=== PATIENT | female | born 1935 | race Caucasian/White ===

== ENCOUNTER → 2019-10-08 09:11 | Outpatient (REF) | payer MEDICARE, SELFPAY | LOC: ANHLAB 09:11 | PROVIDERS: PCP Internal Medicine; Visit Provider Nurse Practitioner Family | DX: C44.41 Basal cell carcinoma of skin of scalp and neck (principal) | CPT/HCPCS: 88305; 88331 ==

== ENCOUNTER 2020-01-20 11:31 | Outpatient (CLI) | payer MEDICARE, SELFPAY ==
[2020-01-20 11:42] LABS: Basophils Percent Auto 0.3 % (0.2-1.2); Eosinophils Absolute Auto 0.1 K/mm3 (0-0.3); Eosinophils Percent Auto 1.6 % (0-4.4); Hemoglobin 14.1 g/dL (12.0-15.0); Immature Granulocyte Absolute 0.03 K/mm3 (0.00-0.031); Immature Granulocyte Percent A 0.4 % (0-0.5); Lymphocytes Absolute Auto 1.11 K/mm3 (0.9-3.2); Lymphocytes Percent Auto 16.5 % (18.3-44.2); Mean Corpuscular Hemoglobin 31.5 pg (26-34); Mean Corpuscular Volume 98.2 fl (80-100); Mean Platelet Volume 11.2 fl (7.4-10.4); Monocytes Absolute Auto 0.7 K/mm3 (0.1-0.6); Monocytes Percent Auto 10.8 % (2.6-8.5); Neutrophils Absolute Auto 4.7 K/mm3 (1.3-6.7); Neutrophils Percent Auto 70.4 % (45.5-73.1); Platelet Count Result 154 k/mm3 (150-375); Red Blood Count 4.48 M/mm3 (4.2-5.4); Red Cell Distribution Width 13.7 % (11.5-14.5); White Blood Count 6.7 K/mm3 (4.5-10.0)
[2020-01-20 11:46] LABS: Blood Urea Nitrogen 18 mg/dL (8-26); Carbon Dioxide 27 mmol/L (22-30); Chloride 101 mmol/L (98-109); Estimated Glomerular Filt Rate 60; Glucose 149 mg/dL (70-105); Sodium 141 mmol/L (138-146)
[2020-01-20 16:22] LABS: Alanine Aminotransferase 16 U/L (4-35); Albumin Level 4.5 g/dL (3.5-5.1); Alkaline Phosphatase 55 U/L (38-126); Aspartate Amino Transferase 19 U/L (14-36); Bilirubin,Total 0.5 mg/dL (0.2-1.3); Blood Urea Nitrogen 18 mg/dL (7-17); Calcium 9.5 mg/dL (8.4-10.2); Carbon Dioxide 27 mmol/L (22-30); Chloride 102 mmol/L (98-107); Estimated Glomerular Filt Rate 60; Glucose 141 mg/dL (65-105); Lactate Dehydrogenase 372 U/L (313-618); Potassium 4.2 mmol/L (3.4-5.0); Sodium 139 mmol/L (137-145)
== END 2020-01-20 11:32 | disposition home or self-care (01) ==
LOC: ANHLAB 11:33
PROVIDERS: PCP Internal Medicine; Visit Provider Internal Medicine Hematology & Oncology
DX: C83.35 Diffuse large B-cell lymphoma, lymph nodes of inguinal region and lower limb (principal)
CPT/HCPCS: 36415; 80048; 80053; 83615; 85025

== ENCOUNTER 2020-02-05 09:09 | Outpatient (CLI) | payer MEDICARE, SELFPAY ==
[2020-02-05 09:33] LABS: Basophils Percent Auto 0.2 % (0.2-1.2); Eosinophils Absolute Auto 0.1 K/mm3 (0-0.3); Eosinophils Percent Auto 2.3 % (0-4.4); Hematocrit 40.4 % (37.0-47.0); Hemoglobin 13.3 g/dL (12.0-15.0); Immature Granulocyte Absolute 0.03 K/mm3 (0.00-0.031); Immature Granulocyte Percent A 0.5 % (0-0.5); Immature Platelet Fraction Pct 4.9 % (0.9-11.2); Lymphocytes Absolute Auto 0.74 K/mm3 (0.9-3.2); Lymphocytes Percent Auto 13.1 % (18.3-44.2); Mean Corpuscular HGB Conc 32.9 g/dl (32-36); Mean Corpuscular Hemoglobin 32.6 pg (26-34); Mean Platelet Volume 11.8 fl (7.4-10.4); Monocytes Absolute Auto 0.5 K/mm3 (0.1-0.6); Monocytes Percent Auto 8.8 % (2.6-8.5); Neutrophils Absolute Auto 4.2 K/mm3 (1.3-6.7); Neutrophils Percent Auto 75.1 % (45.5-73.1); Platelet Count Result 138 k/mm3 (150-375); Red Blood Count 4.08 M/mm3 (4.2-5.4); Red Cell Distribution Width 13.8 % (11.5-14.5); White Blood Count 5.7 K/mm3 (4.5-10.0)
[2020-02-05 09:55] LABS: Hemoglobin A1C 7.3 % (<5.7)
[2020-02-05 10:01] LABS: Alanine Aminotransferase 14 U/L (4-35); Alkaline Phosphatase 46 U/L (38-126); Aspartate Amino Transferase 17 U/L (14-36); Bilirubin,Total 0.5 mg/dL (0.2-1.3); Blood Urea Nitrogen 19 mg/dL (7-17); Calcium 9.2 mg/dL (8.4-10.2); Carbon Dioxide 26 mmol/L (22-30); Chloride 103 mmol/L (98-107); Cholesterol 127 mg/dL (0-200); Estimated Glomerular Filt Rate 60; Glucose 187 mg/dL (65-105); HDL Direct 35 mg/dL; Potassium 4.5 mmol/L (3.4-5.0); Sodium 137 mmol/L (137-145); Triglycerides 232 mg/dL (<150)
[2020-02-05 10:12] LABS: LDL Cholesterol Direct 61 mg/dL
== END 2020-02-05 09:10 | disposition home or self-care (01) ==
PROVIDERS: PCP Internal Medicine; Visit Provider Nurse Practitioner
DX: E11.9 Type 2 diabetes mellitus without complications (principal)
CPT/HCPCS: 36415; 80053; 80061; 83036; 85025; 85055

== ENCOUNTER 2020-05-04 10:29 | Emergency (ER) | payer MEDICARE, SELFPAY ==
--- NOTE | ~2020-05-04 | XR_ITS ---
EXAMINATION: XR chest 2V EXAM DATE: 05/04/2020 10:55 INDICATION: Shortness of breath for 2 weeks, low oxygen saturation. History pulmonary embolus. TECHNIQUE: Frontal and lateral projections of the chest obtained and reviewed. Comparison is made to prior examination from 05/07/2019. FINDINGS: Some small basilar linear opacities, but with improvement compared to prior study. The ace gs are otherwise clear. There are no pleural effusions. The cardiomediastinal silhouette borderline upper limits of normal. There is no pneumothorax suspected. The bones and soft tissues are unremar kable. Possible 1 cm splenic hilar aneurysm. IMPRESSION: 1. No acute cardiopulmonary findings. 2. Scattered linear basilar opacities probably atelectasis. 3. Possible splenic hilar aneurysm. Reviewed, dictated and finalized at location A.
--- NOTE | 2020-05-04 10:38 | ED.SOB ---
HPI - SOB/Dyspnea General Chief Complaint: Shortness of Breath/Dyspnea Stated Complaint: Shortness of Breath Time Seen by Provider: 05/04/20 10:49 Source: patient and RN notes reviewed Mode of arrival: ambulatory Limitations: no limitations History of Present Illness HPI Narrative: 85 year old female who presents to express care with complaints of being short of breath for the past 2 weeks and having some swelling in her feet for the past 4 months. Patient states that she had a virtual visit with nurse practitioner at her MD office today and was told to come to express care or the emergency room. Patient has past history of PE about one year ago states takes aspirin daily but is not on blood thinner. Patient is poor historian. Patient states that she had not eaten today but took her insulin glucose level 98 per finger stick, states she doesn't check her sugars regularly. Patient denies any chest pain or any pressure or feelings of palpitations. MD elicited complaint: shortness of breath Pertinent past history: diabetes and PE Onset (ago): week(s) (2) Related Data Home Medications Medication Instructions Recorded Confirmed aspirin 81 mg tablet,delayed 81 mg PO DAILY 07/29/19 09/09/19 release calcium carbonate 600 mg calcium 600 mg PO DAILY 07/29/19 09/09/19 (1,500 mg) tablet multivit with 1 tablet PO DAILY 07/29/19 09/09/19 [id number]-WF-lutein 8 mg iron-400 mcg-300 mcg tablet Allergies Allergy/AdvReac Type Severity Reaction Status Date / Time codeine Allergy Severe Vomiting Verified 05/04/20 13:05 ANXIETY MEDS AdvReac Hallucinati Uncoded 05/04/20 13:06 ng Review of Systems Review of Systems: Narrative: CONSTITUTIONAL: Denies fever, chills, or sweats. EYES: Denies visual changes, redness, or discharge.positive for pedal edema RESPIRATORY: Positive occasional cough, increase dyspnea. GASTROINTESTINAL: Denies abdominal pain, nausea, vomiting, or diarrhea. GENITOURINARY: Denies dysuria or hematuria. SKIN: Denies rash or itching. MUSCULOSKELETAL: Denies back pain, joint pain, or myalgia. NEUROLOGIC: Denies headache, numbness, or weakness. PSYCHIATRIC: Denies anxiety or depression. All systems reviewed & are unremarkable except as noted in HPI and below PMFSH Past Medical History Medical History (Updated 05/04/20 @ 12:15 by Alea Parker NP) Diabetes Hyperlipidemia Hypertension Measles Mesothelioma Myocardial infarct Non-Hodgkin lymphoma PE (pulmonary thromboembolism) Pneumonia Shingles Skin lesion of neck Surgical History Surgical History (Updated 05/04/20 @ 12:15 by Alea Parker NP) History of hysterectomy Hx of appendectomy Hx of cholecystectomy Family History Family History Sibling Diabetes mellitus Family history of congestive heart failure Mother Family history of congestive heart failure Social History Social History (Updated 05/04/20 @ 11:38 by Alea Parker NP) Smoking status: Former smoker Smoking end date: 09/10/1962 Alcohol intake: never Gender identity (if verbalized by the patient): Female Comments At time of signature, agree with nursing past medical, surgical, social and family history. There is no relevant family history pertinent to the presenting complaint Exam Narrative: Exam Narrative: GENERAL: Well-appearing, well-nourished, and in no acute distress. HEAD: Normocephalic, atraumatic. EYES: PERRLA and EOMI. ENT: Nares clear, no rhinorrhea or epistaxis. Mucous membranes moist. NECK: Supple, no lymphadenopathy CHEST: Coarse breath sounds bases on auscultation. No acute respiratory distress. HEART: Regular rate and rhythm. No murmur heard. Normal peripheral pulses. ABDOMEN: Soft, nontender, nondistended, normal active bowel sounds. EXTREMITIES: Normal range of motion. trace to 1+ pedal edema SKIN: Warm, dry, no rash. NEURO: No focal deficits. Alert and oriented x3.forgetful
[2020-05-04 10:40] VITALS: BP 136/48; PULSE 64; RESP 32; TEMP 36.6; O2SAT 86
--- NOTE | 2020-05-04 11:00 | ECG_ITS ---
Measurements Intervals [place] Rate: 57 P: 233 HI: 162 QRS: 48 QRSD: 97 T: 48 QT: 421 QTc: 413 Interpretive Statements SINUS BRADYCARDIA BASELINE ARTIFACT- III BORDERLINE ECG Electronically Signed On 05-04-2020 13:39:08 CDT by Randall Farmer D.O.
--- NOTE | 2020-05-04 11:04 | PC.NURSE ---
Patient had a virtual office visit with her BIOINFORMATICS DEVELOPER. Was told to come here or to ED for evaluation. Is short of breath on exertion on arrival. Sats 86% on arrival No chest pain. Taken to room 1. Has pedal edema. States it has been there for a few months. Is a very poor historian. According to medical records, patient is diabetic, has a cardiac stent and history of PE approx. 1 year ago. Placed on O2 at 2 l per NC and sats up to 94%. EKG and CXR done.
[2020-05-04 11:22] LABS: Glucose Point of Care 98 (65-105)
--- NOTE | 2020-05-04 11:33 | PC.NURSE ---
Waiting for daughter to arrive. Stable. V.S. 153/33 63 16 98%.
[2020-05-04 12:03] VITALS: BP 148/43; PULSE 63; RESP 16; O2SAT 97
== END 2020-05-04 12:06 | disposition short-term general hospital (02) ==
PROVIDERS: Emergency Provider Registered Nurse; PCP Internal Medicine
DX: R06.02 Shortness of breath (principal); F17.200 Nicotine dependence, unspecified, uncomplicated; E11.9 Type 2 diabetes mellitus without complications; E78.5 Hyperlipidemia, unspecified; I10 Essential (primary) hypertension; I25.2 Old myocardial infarction; C45.9 Mesothelioma, unspecified; Z85.72 Personal history of non-Hodgkin lymphomas; Z86.711 Personal history of pulmonary embolism; Z79.82 Long term (current) use of aspirin
CPT/HCPCS: 71046; 82948; 93005; 99214; G0463

== ENCOUNTER 2020-05-04 12:15 | Inpatient (IN) | payer MEDICARE, SELFPAY ==
[2020-05-04] VITALS (12 sets, daily range): BP systolic 130–143; BP diastolic 50–70; PULSE 50–66; RESP 17–22; TEMP 36.4–36.6; O2SAT 84–95; BMI 36.7
--- NOTE | ~2020-05-04 | CT_ITS ---
EXAMINATION: CTA chest PE protocol EXAM DATE: 05/04/2020 13:59 INDICATION: Shortness of air. TECHNIQUE: Spiral CTA of the chest (pulmonary arteries) was performed with 100 cc Omnipaque 350 intr avenous contrast injection. Images were acquired during the pulmonary arterial phase. Coronal maxi mum intensity projection 3D-reconstructions were created by the technologist on dedicated workstation . Axial, coronal and sagittal reformatted images were reviewed. The dose-length product (DLP) for t his examination was 776.20 mGy-cm. The exposure was tailored according to patient size (auto mA exp osure control), and iterative reconstruction (ASIR) was used as additional dose reduction technique. Comparison is made to prior examination from 07/18/2019. FINDINGS: Pulmonary arteries are well opacified and without intraluminal filling defects. The main, central pulmonary arteries are dilated which can indicate elevated pulmonary arterial pressure, pulm onary arterial hypertension. No thoracic aortic dissection. Scattered groundglass opacities with de pendent and basilar predominant, distribution suggests this is pulmonary edema rather than infection. There is bibasilar subsegmental atelectasis. Small pericardial effusion. There are small bilateral pleural effusions. Tracheobronchial tree is patent. There is no mediastinal, hilar or axillary lym phadenopathy. There is no pneumothorax. Heart normal in size. There is moderate coronary arteri al calcification, arterial sclerosis. 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 There is m oderate thoracic spondylosis without osteoblastic or osteolytic lesions identified. Bridging endplate osteophytes. IMPRESSION: 1. Findings consistent with CHF exacerbation including cardiomegaly, small effusions, dependent grou ndglass opacities. 2. Subsegmental atelectasis. 3. Pulmonary arterial dilation. 4. Splenic artery aneurysm. 5. No pulmonary emboli. Reviewed, dictated and finalized at location A. IMPRESSION: 1. Findings consistent with CHF exacerbation including cardiomegaly, small eff usions, dependent groundglass opacities. 2. Subsegmental atelectasis. 3. Pulmonary arterial dilation. 4. Splenic artery aneurysm. 5. No pulmonary emboli.
--- NOTE | ~2020-05-04 | XR_ITS ---
EXAMINATION: XR chest 2V EXAM DATE: 05/04/2020 12:52 INDICATION: Shortness of breath and right shoulder pain. TECHNIQUE: Frontal and lateral projections of the chest obtained and reviewed. Comparison is made to prior examination from earlier same date, and 05/07/2019. FINDINGS: Some small basilar linear opacities, unchanged compared to earlier today. No confluent cons olidation. Possible small pleural effusions. The cardiomediastinal silhouette borderline upper limit s of normal. There is no pneumothorax suspected. There is an old right humeral neck fracture. Poss ible 1 cm splenic hilar aneurysm. IMPRESSION: 1. Bibasilar linear opacities, most likely atelectasis. Appearance unchanged. 2. Possible small pleural effusions. Reviewed, dictated and finalized at location A.
--- NOTE | 2020-05-04 12:26 | ECG_ITS ---
Measurements Intervals [place] Rate: 56 P: -89 TX: 169 QRS: 55 QRSD: 98 T: 39 QT: 427 QTc: 415 Interpretive Statements SINUS BRADYCARDIA BASELINE WANDER- I, II, III, AVR BORDERLINE ECG Electronically Signed On 05-04-2020 13:41:27 CDT by Randall Farmer D.O.
[2020-05-04 12:53] LABS: Basophils Percent Auto 0.2 % (0.2-1.2); Eosinophils Absolute Auto 0.1 K/mm3 (0-0.3); Eosinophils Percent Auto 1.5 % (0-4.4); Hematocrit 43.1 % (37.0-47.0); Hemoglobin 13.9 g/dL (12.0-15.0); Immature Granulocyte Absolute 0.03 K/mm3 (0.00-0.031); Immature Granulocyte Percent A 0.5 % (0-0.5); Immature Platelet Fraction Pct 7.2 % (0.9-11.2); Lymphocytes Absolute Auto 0.86 K/mm3 (0.9-3.2); Lymphocytes Percent Auto 14.1 % (18.3-44.2); Mean Corpuscular HGB Conc 32.3 g/dl (32-36); Mean Corpuscular Hemoglobin 32.6 pg (26-34); Mean Corpuscular Volume 100.9 fl (80-100); Mean Platelet Volume 11.9 fl (7.4-10.4); Monocytes Absolute Auto 0.6 K/mm3 (0.1-0.6); Monocytes Percent Auto 9.5 % (2.6-8.5); Neutrophils Absolute Auto 4.5 K/mm3 (1.3-6.7); Neutrophils Percent Auto 74.2 % (45.5-73.1); Platelet Count Result 140 k/mm3 (150-375); Red Blood Count 4.27 M/mm3 (4.2-5.4); Red Cell Distribution Width 14.6 % (11.5-14.5); White Blood Count 6.1 K/mm3 (4.5-10.0)
[2020-05-04 13:01] LABS: Anion Gap 9 mmol/L (8-16); Blood Urea Nitrogen 15 mg/dL (7-17); Calcium 9.2 mg/dL (8.4-10.2); Carbon Dioxide 27 mmol/L (22-30); Chloride 103 mmol/L (98-107); Estimated Glomerular Filt Rate 60; Glucose 73 mg/dL (65-105); Potassium 4.2 mmol/L (3.4-5.0); Sodium 139 mmol/L (137-145)
[2020-05-04] MEDS: IPRATROPIUM BR 0.02% INH SOLN 0.5 MG/2.5 ML VIAL INHALATION (13:17)
[2020-05-04] MEDS: ALBUTEROL SULFATE NEB 2.5 MG/0.5 ML INH 5 MG INHALATION (13:17)
--- NOTE | 2020-05-04 13:45 | ED.SOB ---
HPI - SOB/Dyspnea General Chief Complaint: Shortness of Breath/Dyspnea Stated Complaint: shortness breath 2 weeks, rt shoulder blade pain Time Seen by Provider: 05/04/20 12:43 History of Present Illness HPI Narrative: Patient is an 85-year-old female who presents ER with shortness of breath. Ongoing for 2 weeks but worsening over the last 2 days. Associated with a sharp pain in her right scapula. Has history of PE. Not currently on a blood thinner. No lower extremity swelling. Denies runny nose/sore throat/productive cough. No fevers or chills or sweats. She does not use an inhaler. Family does report that occasionally patient's oxygen saturations will run low at home and patient will use pursed lip breathing to improve it. Related Data Home Medications Medication Instructions Recorded Confirmed aspirin 81 mg tablet,delayed 81 mg PO DAILY 07/29/19 05/04/20 release calcium carbonate 600 mg calcium 600 mg PO DAILY 07/29/19 05/04/20 (1,500 mg) tablet multivit with 1 tablet PO DAILY 07/29/19 05/04/20 [id number]-[id number]-IQ-lutein 8 mg iron-400 mcg-300 mcg tablet Allergies Allergy/AdvReac Type Severity Reaction Status Date / Time codeine Allergy Severe Vomiting Verified 05/04/20 13:05 ANXIETY MEDS AdvReac Hallucinati Uncoded 05/04/20 13:06 ng Review of Systems Review of Systems: All systems reviewed & are unremarkable except as noted in HPI and below Constitutional: Constitutional: Denies chills, Denies fever(s) and Reports weakness ENT: Denies nasal congestion and Denies sore throat Cardiovascular: Cardiovascular: Denies chest pain and Denies radiating jaw, neck or arm pain Respiratory: Respiratory: Denies cough, Reports dyspnea and Reports wheezing Gastrointestinal: Gastrointestinal: Denies abdominal pain, Denies nausea and Denies vomiting Neurologic: Denies focal weakness and Denies numbness [facility] Past Medical History Medical History (Updated 05/05/20 @ 00:09 by Tyler Stanley MD) Diabetes Hyperlipidemia Hypertension Measles Mesothelioma Myocardial infarct Non-Hodgkin lymphoma PE (pulmonary thromboembolism) Pneumonia Shingles Skin lesion of neck Surgical History Surgical History (Updated 05/04/20 @ 12:15 by Alea Parker NP) History of hysterectomy Hx of appendectomy Hx of cholecystectomy Family History Family History (Updated 05/04/20 @ 17:56 by Kiara Lawrence RN) Sibling Diabetes mellitus Family history of congestive heart failure Mother Family history of congestive heart failure Father Lung cancer Social History Social History (Updated 05/04/20 @ 11:38 by Alea Parker NP) Smoking status: Former smoker Smoking end date: 09/10/1962 Alcohol intake: former Substance use: never Gender identity (if verbalized by the patient): Female Spiritual care concerns: No Exam Narrative: Exam Narrative: GENERAL: Well-appearing, well-nourished, and in no acute distress. HEAD: Normocephalic, atraumatic. ENT: Mucous membranes moist. CHEST: Faint bibasilar wheezing. No respiratory distress. HEART: Regular rate and rhythm. Normal peripheral pulses. ABDOMEN: Soft, nontender, nondistended. EXTREMITIES: Normal range of motion. No edema. SKIN: Warm, dry, no rash. NEURO: Alert and oriented x3. Course Course Emergency Course: Admitted to hospital service for CHF and hypoxia. Vital Signs Vital signs: Vital Signs Temperature 97.8 F 05/04/20 12:22 Pulse Rate 60 05/04/20 12:22 Respiratory Rate 17 05/04/20 12:22 Blood Pressure 134/50 L 05/04/20 12:22 Pulse Oximetry 95 05/04/20 12:22 Temperature 97.6 F 05/04/20 22:00 Pulse Rate 66 05/04/20 22:00 Respiratory Rate 18 05/04/20 22:00 Blood Pressure 143/52 H 05/04/20 22:00 Pulse Oximetry 91 05/04/20 23:57 MDM - SOB/Dyspnea Lab Data Result diagrams: 05/04/20 12:39 05/04/20 12:39 Labs: Lab Results 05/04/20 05/04/20
[2020-05-04 15:08] LABS: NT Pro B Type Natriuretic Pept 492 PG/ML (5-100)
[2020-05-04] MEDS: FUROSEMIDE INJ 40 MG/4 ML VIAL 20 MG IV PUSH (16:33)
--- NOTE | 2020-05-04 17:21 | PC.NURSE ---
This patient, Rancho Bucio, was admitted to Medical Room 344-01. Patient/family oriented to hospital policies and general routines including ID bracelet, bed and alarms, visiting hours, pain management, procedures, bathroom and other care routines, personal items, smoking policy, room service/diet, and visiting hours. Valuables list has been completed. Information on how to activate the Rapid Response Team has been discussed. Patient/Family are encouraged to report perceived risks to care and to ask questions if they do not understand what they are told or what they should do.
[2020-05-04 18:17] LABS: Glucose Point of Care 92 (65-105)
--- NOTE | 2020-05-04 23:45 | PM.IMHP ---
H&P: HPI History of Present Illness Date/Time: 05/04/20 23:45 Chief complaint: Shortness of breath. Narrative: Rancho Bucio is a very pleasant 89-year-old female with coronary artery disease status post PCI to the distal right coronary artery in April 2014, pulmonary embolism, hypertension, hyperlipidemia, insulin dependent diabetes, and large B-cell lymphoma of the lower extremity who presented to the emergency department earlier today from a local urgent care for evaluation of shortness of breath. Over the last couple of weeks she has been experiencing dyspnea on lesser and lesser exertion and fatigue. She has slept poorly the last couple of nights secondary to orthopnea and with further questioning she admits to snoring heavily and it sounds as though she has had paroxysmal nocturnal dyspnea for quite some time. She has not noticed any significant edema but believes she has gained almost 10 lb in the last 1 to 2 weeks. She has also had a mild cough, that is rarely productive. She has no known history of congestive heart failure but my doctor always suspects it. An echocardiogram in April 2019 showed normal left ventricular size and function with an ejection fraction estimated at 55 to 60% with a mildly enlarged right ventricle and mild pulmonary hypertension. She has never been tested for sleep apnea but thinks she likely has it. She denies recent travel, significant edema, calf pain/tenderness, chest pain, and pleuritic pain. She does however mention having some discomfort underneath the right scapula, which seems to happen mostly at nighttime. It seems to respond well to acetaminophen, and she has not given much thought to it. She has not had exertional chest pain. No nausea, vomiting, or sweats. She denies recent travel and sick contacts. No fever, chills, or sweats. Review of Systems Review of Systems: Narrative: Twelve systems were reviewed with pertinent positives and negatives as per HPI. No fever, chills, or sweats. No recent cold or flu symptoms. She denies recent travel and sick contacts. She believes her diabetes is well controlled. No blurry vision, polydipsia, or polyuria. She does mention urinary urgency, occasional dysuria, and at times hesitancy. Except as documented, all other systems were reviewed and are negative. [facility] Past Medical History Medical History (Updated 05/05/20 @ 00:47 by Yael Knowles PA-C) Basal cell carcinoma Excised from the face and neck. 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 She received adjuvant chemotherapy and radiation. Essential hypertension Gastroesophageal reflux disease Hepatitis B History of echocardiogram Echocardiogram in April 2019 showed normal left ventricular chamber size and function with moderately increased left ventricular wall thickness and ejection fraction estimated 55 to 60%, mildly enlarged right ventricle, moderate aortic valve calcification, mild tricuspid valve regurgitation, mild mitral valve regurgitation, mild pulmonic valve regurgitation, and mild pulmonary hypertension with an estimated pulmonary arterial systolic pressure of 36 mmHg. Hyperlipidemia Insulin dependent type 2 diabetes mellitus Hemoglobin A1c was 7.1% in September 2019. Measles Myocardial infarct Osteoarthritis Pneumonia Pulmonary embolism Shingles Surgical History Surgical History (Updated 05/05/20 @ 00:41 by Yael Knowles PA-C) History of appendectomy History of cardiac catheterization (~08/2014) Status post drug-eluting stent to the distal right coronary artery. History of cholecystectomy History of total abdominal hysterectomy and bilateral salpingo-oophorectomy Status post surgical removal of malignant neoplasm of skin (~08/2016) Excisional b
[2020-05-05] VITALS (10 sets, daily range): BP systolic 146–157; BP diastolic 52–82; PULSE 57–74; RESP 16–22; TEMP 36.6–37; O2SAT 90–93
[2020-05-05 05:11] LABS: Glucose Point of Care 113 (65-105)
--- NOTE | 2020-05-05 06:00 | ECHO_ITS ---
Patient Info Name: Rancho Bucio Age: 85 years : 1935 Gender: Female Ht: 59 in Wt: 181 lbs BSA: 1.89 m2 HR: 66 bpm BP: 107 / 52 mmHg Heart Rhythm: Sinus Rhythm Technical Quality: Good Exam Date: 05/05/2020 10:03 AM Exam Location: [facility] Patient Status: Inpatient Admit Date: 05/04/2020 Staff Ordering Physician: Tyler Stanley MD Title Processor: Mayito Clarke RDCS Attending Provider: Charlotte Can PA-C Referring Physician: Jaden HERNANDEZ; Exam Type: CA echo doppler color flow Study Info Indications I50.9 - Heart failure, unspecified Complete two-dimensional, color flow and Doppler transthoracic echocardiogram is performed. History/Risk Factors CHF exacerbation; hypoxia. Summary 1. Complete two-dimensional, color flow and Doppler transthoracic echocardiogram is performed. 2. Left ventricular chamber size, wall thickness, and systolic function are normal with no regional wall motion abnormalities with an estimated ejection fraction of 60-65%. Diastolic dysfunction, grade 2, is present. 3. Left atrial chamber dimension is moderately enlarged. 4. Moderate pulmonary hypertension, estimated pulmonary arterial systolic pressure is 47 mmHg. 5. There is mild aortic atherosclerosis. 6. Normal sinus rhythm. Left Ventricle Left ventricular chamber size, wall thickness, and systolic function are normal with no regional wall motion abnormalities with an estimated ejection fraction of 60-65%. Diastolic dysfunction, grade 2, is present. Left ventricular chamber dimension is normal. Left ventricular systolic function is normal, estimated at 60-65%. There is no increased left ventricular wall thickness. Left ventricular septal wall motion is normal. The left ventricular diastolic function is grade II diastolic dysfunction. Right Ventricle Right ventricular chamber dimension is normal. Right ventricular systolic function is normal. Left Atria Left atrial chamber dimension is moderately enlarged. Right Atria Right atrial chamber dimension is normal. Aortic Valve The aortic valve is trileaflet. There is no aortic valve sclerosis. There is no aortic valve stenosis. There is no aortic valve regurgitation. Pulmonic Valve The pulmonic valve is normal. There is no pulmonic valve stenosis. There is trace pulmonic regurgitation. Mitral Valve The mitral valve has calcified annulus. There is no mitral valve stenosis. There is trace mitral valve regurgitation. Tricuspid Valve The tricuspid valve leaflets are normal. There is no significant tricuspid valve stenosis. There is trace tricuspid valve regurgitation. Moderate pulmonary hypertension, estimated pulmonary arterial systolic pressure is 47 mmHg. Pericardium/Pleural The pericardium appears normal. There is no pericardial effusion. Inferior Vena Cava Normal inferior vena cava with >50% collapse upon inspiration consistent with Empty right atrial pressure, 5 mmHg. Aorta The aortic root size at the sinus of Valsalva is normal. The prox ascending aorta size is normal. There is mild aortic atherosclerosis. Left Ventricular Outflow Tract Name Value Normal LVOT 2D LVOT Diameter 2
[2020-05-05 06:53] LABS: Anion Gap 7 mmol/L (8-16); Blood Urea Nitrogen 14 mg/dL (7-17); Calcium 8.5 mg/dL (8.4-10.2); Carbon Dioxide 30 mmol/L (22-30); Chloride 102 mmol/L (98-107); Estimated Glomerular Filt Rate 60; Glucose 115 mg/dL (65-105); Magnesium 1.7 mg/dL (1.6-2.3); Potassium 4.1 mmol/L (3.4-5.0); Sodium 139 mmol/L (137-145)
[2020-05-05 08:03] LABS: Glucose Point of Care 117 (65-105)
[2020-05-05] MEDS: FUROSEMIDE INJ 40 MG/4 ML VIAL 20 MG IV PUSH ×2 (08:58→16:31)
[2020-05-05] MEDS: ENOXAPARIN 40 MG/0.4 ML SYRINGE SUB-Q (08:58)
[2020-05-05 11:49] LABS: Glucose Point of Care 189 (65-105)
--- NOTE | 2020-05-05 16:25 | PM.IMPN ---
Progress Note: A&P Assessment and Plan (1) Congestive heart failure: Code(s): I50.9 - Heart failure, unspecified Status: Acute Assessment and Plan: CTA chest revealed cardiomegaly and small pleural effusions. She endorses PND, orthopnea, dyspnea on exertion, weight gain, and lower extremity edema. BNP was only minimally elevated. She is hypoxic but has responded very well to diuresis with improvement in her dypsnea and lower extremity edema. Plan to await echocardiogram results which are pending. Continue lasix 20mg IV BID. Monitor volume status closely with daily weights and strict intake and output. Cardiology has been consulted and input is greatly appreciated. (2) Acute respiratory failure with hypoxia: Code(s): J96.01 - Acute respiratory failure with hypoxia Status: Acute Assessment and Plan: Secondary to above. I suspect she also has underlying sleep apnea. CTA chest revealed no evidence of PE. She does have central pulmonary artery dilation which is suspicious for pulmonary hypertension. Echocardiogram was ordered and is pending. Plan for apnea link tonight. (3) Suspected sleep apnea: Code(s): R29.818 - Other symptoms and signs involving the nervous system Status: Acute Assessment and Plan: Plan for apnea link tonight. (4) Splenic artery aneurysm: Code(s): I72.8 - Aneurysm of other specified arteries Status: Acute Assessment and Plan: A 1 cm splenic artery aneurysm was noted on chest CTA. She is asymptomatic from this standpoint. Follow-up per PCP. 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 Blood sugars were reviewed and are reasonably controlled. Continue basal insulin; hold metformin as she received IV contrast. Continue sliding scale insulin, ACHS Accu-Cheks, and hypoglycemic protocol. (6) Essential hypertension: Code(s): I10 - Essential (primary) hypertension Status: Acute Assessment and Plan: Blood pressures were reviewed and are reasonably well controlled with mild elevation of 146/82 this afternoon. Plan to continue carvedilol and amlodipine-valsartan. Continue to monitor and adjust antihypertensives as indicated. (7) Coronary artery disease: Code(s): I25.10 - Atherosclerotic heart disease of [place] coronary artery without angina pectoris Status: Chronic Assessment and Plan: She has a hx of 2 drug-eluting stent to the distal right coronary artery in April 2014. She follows with Dr. Thomas for primary cardiology. Plan to continue aspirin, lovastatin, and carvedilol. Subjective Date/time seen: 05/05/20 16:25 Interval history: Mr. Bucio is an 85 y.o. female who is seen in follow-up for acute respiratory failure with hypoxia which is presumed to be secondary to acute congestive heart failure. She reports significant improvement in her dyspnea following diuresis. She notes good urine output with increased urinary frequency but no dysuria or urgency. She denies chest pain and palpitations. She reports that her lower extremity edema has almost resolved. She had a bowel movement yesterday and reports a good appetite. She is in good spirits and has no other concerns. Review of Systems Review of Systems: All systems reviewed & are unremarkable except as noted in HPI and below Exam Narrative: Exam Narrative: General: Very pleasant, well-developed, and well-nourished 85 y.o. female lying in the semi-recumbent position in bed in no acute respiratory distress. HEENT: Normocephalic and atraumatic. Conjunctivae and lids normal. EOMI. Oral mucosa tacky. Neck: Supple without lymphadenopathy or masses. Cardiac: Regular rate and rhythm. S1 and S2 normal. Telemetry was revie
[2020-05-05 17:19] LABS: Glucose Point of Care 149 (65-105)
--- NOTE | 2020-05-05 18:23 | WPDCN ---
Assessment and Plan Assessment and plan (1) Acute diastolic CHF (congestive heart failure): Code(s): I50.31 - Acute diastolic (congestive) heart failure Status: Acute Assessment and Plan: Patient presents with new onset mild CHF, probably diastolic. Improving quickly. Echo is pending. Already taking valsartan and carvedilol. Likely will add mild diuretic on discharge as well as a low-salt diet. Hopefully home or Sunday. (2) Coronary artery disease: Code(s): I25.10 - Atherosclerotic heart disease of [place] coronary artery without angina pectoris Status: Chronic Assessment and Plan: History of CAD and RCA stent, stable with no anginal symptoms. (3) Essential hypertension: Code(s): I10 - Essential (primary) hypertension Status: Acute Assessment and Plan: Running mildly elevated at times. (4) PAD (peripheral artery disease): Code(s): I73.9 - Peripheral vascular disease, unspecified Status: Acute Assessment and Plan: I could not palpate any distal pulses so the patient may have PAS, asymptomatic. HPI Data of Consult Date/Time: 05/05/20 18:23 Requesting Physician: Charlotte Can PA-C Primary Care Provider: Krish Nayak DO Consult Narrative Narrative: Date of service: 05/05 2020 [place] Bucio is a 85 year old female whom we were asked to see at the request of the hospitalist for advice and opinion regarding her CHF in consultation. She has been followed by Dr. Thomas in the past for CAD. She had a drug-eluting stent placed in the distal right coronary artery in April 2014. Also history of large B-cell lymphoma, in remission. She canceled her appointment with Dr. Thomas in October 2019 and was last seen in October 2018. The patient reports that she has been having shortness of breath over the last couple weeks as well as orthopnea and PND, and lower extremity edema. She gained about 8 lb. She has been having some right scapular pain which has been fairly constant, somewhat positional, for months but no anginal-type pain. she has not needed a low-salt diet in the past, and has been eating a lot of salty and tomatoes. No nonsteroidal use. No new medications. Has not been on any diuretics as an outpatient. ProBNP was 492. She is diuresing well with IV furosemide and feeling much better but remains on O2. Echocardiogram in April 2019: normal left ventricular chamber size and function with moderately increased left ventricular wall thickness and ejection fraction estimated 55 to 60%, mildly enlarged right ventricle, moderate aortic valve calcification, mild tricuspid valve regurgitation, mild mitral valve regurgitation, mild pulmonic valve regurgitation, and mild pulmonary hypertension with an estimated pulmonary arterial systolic pressure of 36 mmHg. Review of Systems Constitutional: Constitutional: Denies chills and Reports difficulty sleeping Eyes: Eyes: Denies blurry vision ENT: Denies nasal congestion Cardiovascular: Cardiovascular: Denies chest pain, Denies diaphoresis, Reports pedal edema, Reports leg edema, Denies lightheadedness and Denies palpitations Respiratory: Respiratory: Reports cough, Reports dyspnea, Reports dyspnea on exertion and Reports wheezing Gastrointestinal: Gastrointestinal: Denies abdominal pain and Denies hematochezia Genitourinary: Genitourinary: Denies dysuria Musculoskeletal: Musculoskeletal: Reports no additional musculoskeletal complaints Integumentary/Breasts: Skin/Breast: Denies rash Neurologic: Denies confusion Psychiatric: Psychiatric: Denies behavioral changes PMFSH Past Medical History Medical History (Reviewed 05/05/20 @ 18:54
[2020-05-05 23:10] LABS: Glucose Point of Care 185 (65-105)
[2020-05-06] VITALS (12 sets, daily range): BP systolic 129–154; BP diastolic 58–63; PULSE 57–67; RESP 14–18; TEMP 36.3–36.5; O2SAT 91–93
[2020-05-06 06:38] LABS: Anion Gap 7 mmol/L (8-16); Blood Urea Nitrogen 17 mg/dL (7-17); Calcium 8.9 mg/dL (8.4-10.2); Carbon Dioxide 32 mmol/L (22-30); Chloride 99 mmol/L (98-107); Estimated Glomerular Filt Rate 60; Glucose 174 mg/dL (65-105); Magnesium 1.7 mg/dL (1.6-2.3); Sodium 138 mmol/L (137-145)
[2020-05-06 07:43] LABS: Folic Acid > 20.0 ng/mL (2.76->20)
--- NOTE | 2020-05-06 07:53 | PC.NURSE ---
Morning medications not in med cart on 05/06/20. Call to pharmacy to request meds for administration.
[2020-05-06 08:03] LABS: Glucose Point of Care 172 (65-105)
[2020-05-06] MEDS: ASPIRIN 81 MG ENTERIC TABLET PO (08:27)
[2020-05-06] MEDS: CALCIUM CARBONATE (OSCAL) 500 MG TABLET 600 MG PO (08:27)
[2020-05-06] MEDS: carvediloL 25 MG TABLET PO ×2 (08:27→20:33)
[2020-05-06] MEDS: THERAPEUTIC MULTIVITAMINS/MINERALS TAB (*BKC) 1 TABLET PO (08:28)
[2020-05-06] MEDS: ENOXAPARIN 40 MG/0.4 ML SYRINGE SUB-Q (08:28)
[2020-05-06] MEDS: LOVASTATIN 20 MG TABLET PO (08:28)
[2020-05-06] MEDS: FUROSEMIDE INJ 40 MG/4 ML VIAL 20 MG IV PUSH (08:28)
[2020-05-06] MEDS: VALSARTAN 160 MG TABLET 320 MG PO (08:29)
[2020-05-06] MEDS: amLODIPine BESYLATE 5 MG TABLET 10 MG PO (08:29)
[2020-05-06] MEDS: CYANOCOBALAMIN INJ 1,000 MCG/ML VIAL 1000 MCG IM (11:08)
[2020-05-06 11:41] LABS: Glucose Point of Care 205 (65-105)
[2020-05-06] MEDS: INSULIN ASPART (*BKC) 100 UNITS/ML SUB-Q (12:32)
--- NOTE | 2020-05-06 12:42 | PM.IMPN ---
Progress Note: A&P Assessment and Plan (1) Congestive heart failure: Code(s): I50.9 - Heart failure, unspecified Status: Acute Assessment and Plan: CTA chest revealed cardiomegaly and small pleural effusions. She endorses PND, orthopnea, dyspnea on exertion, weight gain, and lower extremity edema. BNP was only minimally elevated. She is hypoxic but has responded very well to diuresis with improvement in her dypsnea and lower extremity edema. Echocardiogram revealed normal LV systolic function with EF 60-65%, grade 2 diastolic dysfunction, moderate pulmonary hypertension, and mild aortic atherosclerosis with no other significant valvular disorders. Continue lasix. Discussed with cardiology and will increase to lasix 40mg IV BID as she is still requiring 2L per nasal cannula. Monitor volume status closely with daily weights and strict intake and output. Cardiology has been consulted and input is greatly appreciated. (2) Acute respiratory failure with hypoxia: Code(s): J96.01 - Acute respiratory failure with hypoxia Status: Acute Assessment and Plan: Secondary to above. Apnea link revealed a high probability of sleep apnea. CTA chest revealed no evidence of PE. She does have central pulmonary artery dilation and moderate pulmonary hypertension on echocardiogram which may be secondary to underlying sleep apnea and hx of PE. She reports that she was previously on oxygen following diagnosis of her PE and stopped using her oxygen approximately 8 months ago. She may need home oxygen as she is still requiring 2L per nasal cannula. Will increase diuresis. (3) Suspected sleep apnea: Code(s): R29.818 - Other symptoms and signs involving the nervous system Status: Acute Assessment and Plan: Apnea-link revealed a high probability for a suspected pathological breathing disorder. She will need to have a formal sleep study outpatient. I have discussed this with the patient and her daughter and they will schedule this through her PCP's office. (4) Splenic artery aneurysm: Code(s): I72.8 - Aneurysm of other specified arteries Status: Acute Assessment and Plan: A 1 cm splenic artery aneurysm was noted on chest CTA. She is asymptomatic from this standpoint. Follow-up per PCP. 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 Blood sugars were reviewed and are reasonably controlled. Continue basal insulin. Hold meformin for now. Continue sliding scale insulin, ACHS Accu-Cheks, and hypoglycemic protocol. (6) Essential hypertension: Code(s): I10 - Essential (primary) hypertension Status: Acute Assessment and Plan: Blood pressures were reviewed and elevated at 154/63 prior to receiving antihypertensives. Plan to continue carvedilol and amlodipine-valsartan. Continue to monitor and adjust antihypertensives as indicated. (7) Coronary artery disease: Code(s): I25.10 - Atherosclerotic heart disease of [place] coronary artery without angina pectoris Status: Chronic Assessment and Plan: She has a hx of 2 drug-eluting stents to the distal right coronary artery in April 2014. She follows with Dr. Thomas for primary cardiology. Plan to continue aspirin, lovastatin, and carvedilol. (8) Vitamin B12 deficiency: Code(s): E53.8 - Deficiency of other specified B group vitamins Status: Acute Assessment and Plan: Vitamin B12 was low at 218. She received 1 dose of cyanocobalamin today. She will need to continue supplementation and follow-up outpatient with her PCP. Subjective Date/time seen: 05/06/20 12:42 Interval history: Mr. Bucio is an 85 y.o. female who is seen in follow-up for acute respiratory
[2020-05-06 17:07] LABS: Glucose Point of Care 130 (65-105)
[2020-05-06] MEDS: FUROSEMIDE INJ 40 MG/4 ML VIAL IV PUSH (17:23)
--- NOTE | 2020-05-06 20:29 | PM.PNCARD ---
Progress Note: A&P Assessment and Plan (1) Acute diastolic CHF (congestive heart failure): Code(s): I50.31 - Acute diastolic (congestive) heart failure Status: Acute Assessment and Plan: Diuresing well but still on O2. A bit surprised that this that she did not appear to be in very bad CHF. However her CTA was negative for pulmonary embolus. Wonder she has underlying lung disease; had a history of a PE in the past and has pulmonary hypertension. Renal function stable. Agree with increasing furosemide to: 40 mg IV push b.i.d. (2) Essential hypertension: Code(s): I10 - Essential (primary) hypertension Status: Acute Assessment and Plan: Blood pressure still running a bit high at times and has diastolic dysfunction. Will see what blood pressure is running after she diuresis. May need additional BP meds. (3) Coronary artery disease: Code(s): I25.10 - Atherosclerotic heart disease of [place] coronary artery without angina pectoris Status: Chronic Assessment and Plan: Stable. Subjective Date/time seen: 05/06/20 20:29 Patient presents with new onset mild CHF, probably diastolic. Improving. Already taking valsartan and carvedilol. Likely will add mild diuretic on discharge as well as a low-salt diet. Followed by Dr. Thomas For CAD, history of RCA stent 2013. 04/2020 echo: EF 60-65%, grade 2 diastolic dysfunction, moderate pulmonary hypertension, RVSP 47 mmHg. Date of service: 05/06/2020 Had a good day is feeling a lot better. Edema has resolved. Still has COTTON walking back from the bathroom. Diuresing well, but still requiring oxygen. Renal function stable. Review of Systems ENT: Denies epistaxis Cardiovascular: Cardiovascular: Denies chest pain, Denies pedal edema, Denies lightheadedness and Denies palpitations Respiratory: Respiratory: Denies cough and Reports dyspnea on exertion Gastrointestinal: Gastrointestinal: Denies abdominal pain Genitourinary: Genitourinary: Denies flank pain Musculoskeletal: Musculoskeletal: Reports no additional musculoskeletal complaints Integumentary/Breasts: Skin/Breast: Denies rash Neurologic: Denies confusion Psychiatric: Psychiatric: Reports no additional psychiatric complaints Exam Narrative: Exam Narrative: Very pleasant lady, no distress Const: General: comfortable and no acute distress HENMT: General nose exam: no epistaxis Eyes: EOM: EOMs intact bilaterally Neck: Neck: supple Resp: Effort & Inspection: normal respiratory effort Auscultation: rales ( fine rales in bases, 1/4 to 1/3 up bilaterally.) Cardio: Rate: regular rate Rhythm: regular rhythm GI: Inspection: non-distended Skin: General skin exam: normal color Wounds: no wounds Neuro: Speech: normal speech Motor exam (neuro): Normal motor muscle tone present throughout Extrem: General: no edema and no pedal edema Psych: Mental Status: mental status grossly normal Affect: normal affect Objective Data Vital Signs Vital Signs: Vital Signs - 24 hr 05/05/20 21:30 05/05/20 21:32 05/06/20 00:00 Temperature 97.9 F Pulse Rate 70 57 L Respiratory Rate 20 Blood Pressure 157/58 H Pulse Oximetry 91 91 05/06/20 04:00 05/06/20 06:00 05/06/20 08:00 Temperature 97.4 F L Pulse Rate 62 63 63 Respiratory Rate 18 Blood Pressure 154/63 H Pulse Oximetry 91 05/06/20 08:27 05/06/20 09:00 05/06/20 12:00 Temperature Pulse Rate 65 67 Respiratory Rate Blood Pressure Pulse Oximetry 91 05/06/20 14:00 05/06/20 16:00 05/06/20 20:21 Temperature 97.7 F 97.3 F L Pulse Rate 62 63 64 Respiratory Rate 14 16 Blood Pressure 146/63 H 129/58 L Pulse Oximetry 93 91 Intake/Output Intake/Output: Intake & Output 05/03/20 05/04/20 05/05/20 05/06/20 23:59 23:59 23:59 23:59 Intake
[2020-05-06] MEDS: INSULIN GLARGINE (*BKC) 100 UNITS/ML 28 UNITS SUB-Q (20:34)
[2020-05-06 22:01] LABS: Glucose Point of Care 228 (65-105)
[2020-05-07] VITALS (9 sets, daily range): BP systolic 115–136; BP diastolic 65–72; PULSE 57–80; RESP 14–17; TEMP 36.5–36.9; O2SAT 94–95
[2020-05-07 07:23] LABS: Anion Gap 8 mmol/L (8-16); Blood Urea Nitrogen 29 mg/dL (7-17); Calcium 9.1 mg/dL (8.4-10.2); Carbon Dioxide 33 mmol/L (22-30); Chloride 94 mmol/L (98-107); Estimated Glomerular Filt Rate 53; Glucose 176 mg/dL (65-105); Magnesium 1.9 mg/dL (1.6-2.3); Sodium 135 mmol/L (137-145)
[2020-05-07 08:07] LABS: Glucose Point of Care 162 (65-105)
[2020-05-07] MEDS: ENOXAPARIN 40 MG/0.4 ML SYRINGE SUB-Q (08:44)
[2020-05-07] MEDS: amLODIPine BESYLATE 5 MG TABLET 10 MG PO (08:44)
[2020-05-07] MEDS: THERAPEUTIC MULTIVITAMINS/MINERALS TAB (*BKC) 1 TABLET PO (08:44)
[2020-05-07] MEDS: VALSARTAN 160 MG TABLET 320 MG PO (08:44)
[2020-05-07] MEDS: LOVASTATIN 20 MG TABLET PO (08:44)
[2020-05-07] MEDS: CALCIUM CARBONATE (OSCAL) 500 MG TABLET 600 MG PO (08:44)
[2020-05-07] MEDS: ASPIRIN 81 MG ENTERIC TABLET PO (08:44)
--- NOTE | 2020-05-07 08:44 | PM.PNCARD ---
Progress Note: A&P Additional Plan 85-year-old lady with hypertensive heart disease diastolic noncompliance and diastolic CHF. She appears to be essentially euvolemic by physical exam. I will transition her to oral furosemide today. We would need to discontinue nasal cannula oxygen and see how she does on room air. Would anticipate discharge tomorrow if she is doing well on oral diuretics and room air Kael Thomas MD [facility] Subjective Date/time seen: Date of service:05/07/20 08:44 Interval history: Follow-up visit in this 85-year-old lady who appears to have diastolic congestive heart failure. She is known to have longstanding significant hypertension on multi-drug regimen and was admitted with shortness of breath. Modest pulmonary vascular congestion noted on chest x-ray. She has improved considerably with diuretics. She appears to be very comfortable and offers no other complaints this morning. She is still on nasal cannula oxygen however Exam Const: General: comfortable and no acute distress HENMT: Mouth: Yes moist mucous membranes Eyes: Sclera: sclerae normal Pupils: Equal, round and reactive pupils present Neck: Neck: supple and no JVD Thyroid: thyroid normal Carotids: bruit Resp: Effort & Inspection: normal respiratory effort Auscultation: clear to auscultation bilaterally Cardio: Rate: regular rate Rhythm: regular rhythm GI: Auscultation: normal bowel sounds Skin: General skin exam: normal color Neuro: Cognition (Neuro): normal cognition Extrem: General: normal to inspection Other: no significant peripheral edema Objective Data Vital Signs Vital Signs: Vital Signs - 24 hr 05/06/20 09:00 05/06/20 12:00 05/06/20 14:00 Temperature 36.5 C Pulse Rate 67 62 Respiratory Rate 14 Blood Pressure 146/63 H Pulse Oximetry 91 93 05/06/20 16:00 05/06/20 20:00 05/06/20 20:21 Temperature 36.3 C L Pulse Rate 63 63 64 Respiratory Rate 16 Blood Pressure 129/58 L Pulse Oximetry 91 05/06/20 20:33 05/07/20 00:00 05/07/20 04:00 Temperature Pulse Rate 66 57 L 63 Respiratory Rate Blood Pressure Pulse Oximetry 05/07/20 05:59 Temperature 36.6 C Pulse Rate 64 Respiratory Rate 14 Blood Pressure 115/72 Pulse Oximetry 95 Intake/Output Intake/Output: Intake & Output 05/04/20 05/05/20 05/06/20 05/07/20 23:59 23:59 23:59 23:59 Intake Total 480 1580 1490 350 Output Total 500 3300 9111 295 [facility] -[phone] -[phone] Meds/Results Medications: Active Medications Generic Name Dose Route Start Last Admin Trade Name Freq PRN Reason Stop Dose Admin Acetaminophen 650 mg 05/04/20 16:07 Tylenol Tablet PO Q4H PRN Mild Pain (1-3) or Fever Amlodipine Besylate 10 mg 05/06/20 09:00 05/06/20 08:29 Norvasc PO 06/05/20 09:01 10 mg DAILY BUTCH Administration Aspirin 81 mg 05/06/20 09:00 05/06/20 08:27 Aspirin Ec PO 81 mg DAILY BUTCH Administration Calcium Carbonate 600 mg 05/06/20 09:00 05/06/20 08:27 Oscal 500 Mg PO 06/05/20 09:01 600 mg DAILY BUTCH Administration Carvedilol 25 mg 05/06/20 09:00 05/06/20 20:33 Coreg PO 25 mg Q12H BUTCH Administration Dextrose 12.5 gm 05/05/20 00:53 Dextrose 50% Syringe IV PUSH PRN PRN Hypoglycemia Protocol Enoxaparin Sodium 40 mg 05/05/20 09:00 05/06/20 08:28 Lovenox SUB-Q 40 mg DAILY BUTCH Administration Furosemide 40 mg 05/07/20 09:00 Lasix Tablet PO DAILY BUTCH Glucagon 1 mg 05/05/20 00:53 Glucagon For Inj IM PRN PRN Hypoglycemia Protocol Glucose 15 gm 05/05/20 00:53 Glutose 15 PO PRN PRN Hypoglycemia Protocol Dextrose 1,000 mls @ 100 mls/hr 05/05/20 00:53 Dextrose 5% 1,000 Ml IVPB PRN PRN Hypoglycemia Protocol Insulin Aspart 3 - 6 units 05/05/20 08:00 05/07/20 08:25 Novolog SUB-Q Not Given TIDWM BUTCH Protocol Insulin Glargine 28 units 0
[2020-05-07] MEDS: carvediloL 25 MG TABLET PO ×2 (08:45→21:29)
--- NOTE | 2020-05-07 08:50 | PC.NURSE ---
Furosemide changed from IV to PO. IV not given. PO given instead.
--- NOTE | 2020-05-07 11:43 | PM.IMPN ---
Progress Note: A&P Assessment and Plan (1) Congestive heart failure: Code(s): I50.9 - Heart failure, unspecified Status: Acute Assessment and Plan: CTA chest revealed cardiomegaly and small pleural effusions. She endorses PND, orthopnea, dyspnea on exertion, weight gain, and lower extremity edema. BNP was only minimally elevated. She is hypoxic but has responded very well to diuresis with improvement in her dypsnea and lower extremity edema. Her oxygen requirements have decreased to 1L today. Echocardiogram revealed normal LV systolic function with EF 60-65%, grade 2 diastolic dysfunction, moderate pulmonary hypertension, and mild aortic atherosclerosis with no other significant valvular disorders. Continue lasix and transition to PO lasix today. Monitor volume status closely with daily weights and strict intake and output. Cardiology has been consulted and input is greatly appreciated. (2) Acute respiratory failure with hypoxia: Code(s): J96.01 - Acute respiratory failure with hypoxia Status: Acute Assessment and Plan: Secondary to above. Apnea link revealed a high probability of sleep apnea. CTA chest revealed no evidence of PE. She does have central pulmonary artery dilation and moderate pulmonary hypertension on echocardiogram which may be secondary to underlying sleep apnea and hx of PE. She reports that she was previously on oxygen following diagnosis of her PE and stopped using her oxygen approximately 8 months ago. She was weaned to 1L per nasal cannula today. Wean as tolerated. Plan for home oxygen evaluation tomorrow. (3) Suspected sleep apnea: Code(s): R29.818 - Other symptoms and signs involving the nervous system Status: Acute Assessment and Plan: Apnea-link revealed a high probability for a suspected pathological breathing disorder. She will need to have a formal sleep study outpatient. I have discussed this with the patient and her daughter and they will schedule this through her PCP's office. (4) Splenic artery aneurysm: Code(s): I72.8 - Aneurysm of other specified arteries Status: Acute Assessment and Plan: A 1 cm splenic artery aneurysm was noted on chest CTA. She is asymptomatic from this standpoint. Follow-up per PCP. 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 Blood sugars were reviewed and are reasonably controlled. Continue basal insulin. Hold meformin for now. Continue sliding scale insulin, ACHS Accu-Cheks, and hypoglycemic protocol. (6) Essential hypertension: Code(s): I10 - Essential (primary) hypertension Status: Acute Assessment and Plan: Blood pressures were reviewed and well-controlled. Plan to continue carvedilol and amlodipine-valsartan. Continue to monitor and adjust antihypertensives as indicated. (7) Coronary artery disease: Code(s): I25.10 - Atherosclerotic heart disease of [place] coronary artery without angina pectoris Status: Chronic Assessment and Plan: She has a hx of 2 drug-eluting stents to the distal right coronary artery in April 2014. She follows with Dr. Thomas for primary cardiology. Plan to continue aspirin, lovastatin, and carvedilol. (8) Vitamin B12 deficiency: Code(s): E53.8 - Deficiency of other specified B group vitamins Status: Acute Assessment and Plan: Vitamin B12 was low at 218. She received 1 dose of cyanocobalamin today. She will need to continue supplementation and follow-up outpatient with her PCP. Subjective Date/time seen: 05/07/20 11:43 Interval history: Mr. Bucio is an 85 y.o. female who is seen in follow-up for acute respiratory failure with hypoxia secondary to congestive heart failure
[2020-05-07 11:54] LABS: Glucose Point of Care 205 (65-105)
[2020-05-07] MEDS: FUROSEMIDE 40 MG TABLET PO (12:53)
[2020-05-07] MEDS: INSULIN ASPART (*BKC) 100 UNITS/ML SUB-Q (12:53)
[2020-05-07 16:24] LABS: Glucose Point of Care 172 (65-105)
[2020-05-07] MEDS: INSULIN GLARGINE (*BKC) 100 UNITS/ML 28 UNITS SUB-Q (21:30)
[2020-05-07 21:48] LABS: Glucose Point of Care 223 (65-105)
[2020-05-08] VITALS (10 sets, daily range): BP systolic 133–137; BP diastolic 56–65; PULSE 57–89; RESP 16; TEMP 36.1–36.3; O2SAT 86–97
[2020-05-08 06:43] LABS: Anion Gap 6 mmol/L (8-16); Blood Urea Nitrogen 39 mg/dL (7-17); Calcium 8.9 mg/dL (8.4-10.2); Carbon Dioxide 32 mmol/L (22-30); Chloride 98 mmol/L (98-107); Estimated Glomerular Filt Rate 47; Glucose 193 mg/dL (65-105); Magnesium 2.1 mg/dL (1.6-2.3); Sodium 136 mmol/L (137-145)
[2020-05-08 07:55] LABS: Glucose Point of Care 172 (65-105)
--- NOTE | 2020-05-08 09:43 | HOMEO2EVAL ---
Home Oxygen Evaluation RC: Home Oxygen (O2) Evaluation Start: 05/08/20 05:00 Freq: ONCE Status: Active Protocol: RPE Activity Type Activity Date Activity User E-Sign Co-Sign Detail Recorded Client Recorded Date Recorded By Document 05/08/20 09:30 KRM [email or web address] 05/08/20 09:42 KRM Document 05/08/20 09:33 KRM [email or web address] 05/08/20 09:42 KRM Document 05/08/20 09:35 KRM [email or web address] 05/08/20 09:42 KRM Document 05/08/20 09:37 KRM [email or web address] 05/08/20 09:42 KRM Document 05/08/20 09:42 KRM [email or web address] 05/08/20 09:42 KRM 05/08/20 05/08/20 05/08/20 09:30 09:33 09:35 Home O2 Evaluation Test Phase Resting Exercise Exercise Oxygen Delivery Room Air Room Air Nasal Cannula Oxygen Flow Rate (L/min) 1 Pulse Oximetry (90-100 %) 97 86 L 87 L Pulse Rate (60-100 beats/min) 57 L 75 75 Activity Tolerance Good Good Ambulation Distance (feet) Home Oxygen Evaluation Comments Treatment Charges O2 Evaluation 05/08/20 05/08/20 09:37 09:42 Home O2 Evaluation Test Phase Exercise Resting Oxygen Delivery Nasal Cannula Room Air Oxygen Flow Rate (L/min) 2 Pulse Oximetry (90-100 %) 90 92 Pulse Rate (60-100 beats/min) 68 89 Activity Tolerance Good Ambulation Distance (feet) 50 Home Oxygen Evaluation Comments 2lpm with activity Treatment Charges
[2020-05-08] MEDS: ENOXAPARIN 40 MG/0.4 ML SYRINGE SUB-Q (09:47)
[2020-05-08] MEDS: CALCIUM CARBONATE (OSCAL) 500 MG TABLET 600 MG PO (09:48)
[2020-05-08] MEDS: amLODIPine BESYLATE 5 MG TABLET 10 MG PO (09:48)
[2020-05-08] MEDS: ASPIRIN 81 MG ENTERIC TABLET PO (09:48)
[2020-05-08] MEDS: VALSARTAN 160 MG TABLET 320 MG PO (09:48)
[2020-05-08] MEDS: THERAPEUTIC MULTIVITAMINS/MINERALS TAB (*BKC) 1 TABLET PO (09:48)
[2020-05-08] MEDS: LOVASTATIN 20 MG TABLET PO (09:49)
[2020-05-08] MEDS: carvediloL 25 MG TABLET PO (09:50)
--- NOTE | 2020-05-08 10:05 | PCRCNOTE ---
Setting patient up with oxygen (2lpm with activity) with [facility]. Also sending over order for [employer] to see if patient can be approved for home cpap unit until she can get into sleep lab for formal sleep study.
[2020-05-08] MEDS: FUROSEMIDE 40 MG TABLET PO (10:54)
[2020-05-08] MEDS: CYANOCOBALAMIN 1,000 MCG TABLET 1000 MCG PO (10:54)
[2020-05-08 11:58] LABS: Glucose Point of Care 188 (65-105)
--- NOTE | 2020-05-08 14:16 | PM.DS ---
DS: Admitting Diagnosis Admitting Diagnosis Admitting Diagnosis: Shortness of breath. DS: Discharge Diagnosis Discharge Diagnosis (1) Congestive heart failure: Code(s): I50.9 - Heart failure, unspecified Status: Acute Assessment and Plan: Discharge Summary (Date of service 05/08/20): Mrs. Bucio is an 85 y.o. female with PMH significant for CAD s/p PCI April 2014, pulmonary embolism, hypertension, hyperlipidemia, IDDM, and large B-cell lymphoma of the RLE who presented to the emergency department for the evaluation of dyspnea. She reported increased dyspnea with exertion, orthopnea, and PND. She also had a notable 10 lb weight gain. She as hypoxic at presentation to the emergency department. Initial workup in the emergency department was notable for cardiomegaly and small pleural effusions on chest CTA with no evidence of PE. WBC was not elevated. BNP was minimally elevated at 492. MCV was elevated at 100.9. She was treated with IV lasix and admitted to the hospitalist service for acute exacerbation of congestive heart failure. Cardiology was consulted and echocardiogram was performed. Echocardiogram revealed normal LV systolic function with EF 60-65%, grade 2 diastolic dysfunction, moderate pulmonary hypertension, and mild aortic atherosclerosis with no other significant valvular disorders. She was weaned to room air at rest following diuresis and qualified for 2 liters of oxygen per nasal cannula with activity. She was transitioned to PO lasix at discharge. Apnea link revealed a high probability for sleep apnea and outpatient sleep study was recommended. She was encouraged to follow-up with Dr. Walker outpatient as she will likely benefit from pulmonary function testing as well. Her pulmonary hypertension was felt to be due to underlying sleep apnea and hx of pulmonary embolism. She was discharged in stable condition on the afternoon of 05/08/20. (2) Acute respiratory failure with hypoxia: Code(s): J96.01 - Acute respiratory failure with hypoxia Status: Acute Assessment and Plan: Secondary to above. Apnea link revealed a high probability of sleep apnea. CTA chest revealed no evidence of PE. She does have central pulmonary artery dilation and moderate pulmonary hypertension on echocardiogram which may be secondary to underlying sleep apnea and hx of PE. She reports that she was previously on oxygen following diagnosis of her PE and stopped using her oxygen approximately 8 months ago. She was weaned to room air at rest and qualified for 2 liters per nasal cannula with activity on home oxygen evaluation. She may benefit from outpatient pulmonary function testing as well and she will follow-up with Dr. Walker outpatient. (3) Suspected sleep apnea: Code(s): R29.818 - Other symptoms and signs involving the nervous system Status: Acute Assessment and Plan: Apnea-link revealed a high probability for a suspected pathological breathing disorder. She will need to have a formal sleep study outpatient. This was discussed this with the patient and her daughter and they will schedule this through her PCP's office. (4) Splenic artery aneurysm: Code(s): I72.8 - Aneurysm of other specified arteries Status: Acute Assessment and Plan: A 1 cm splenic artery aneurysm was noted on chest CTA. She is asymptomatic from this standpoint. Outpatient follow-up per her PCP is recommended. (5) Insulin dependent type 2 diabetes mellitus: Code(s): E11.9 - Type 2 diabetes mellitus without complications; Z79.4 - extermination inspector (current) use of insulin Status: Acute Assessment and Plan: Hemoglobin A1c was 7.1% in September 2019. Blood sugars were reviewed and reasonably controlled. Basal insulin was continued and metformin was held while inpatient and resumed at discharge. (6) Essential hypertension: Code(s): I10 - Essential (primary) hypertension Status:
--- NOTE | 2020-05-08 14:40 | PM.PNCARD ---
Progress Note: A&P Assessment and Plan (1) Acute diastolic CHF (congestive heart failure): Code(s): I50.31 - Acute diastolic (congestive) heart failure Status: Acute Assessment and Plan: Diuresed, doing well, appears euvolemic though she still needs O2 with activity. Reviewed low-salt diet, daily weights, when to call and follow-up. Okay for discharge from my point of view. My office will arrange follow-up (2) Essential hypertension: Code(s): I10 - Essential (primary) hypertension Status: Acute Assessment and Plan: Blood pressure still running a bit high at times and has diastolic dysfunction. Improved after diuresis (3) Coronary artery disease: Code(s): I25.10 - Atherosclerotic heart disease of [place] coronary artery without angina pectoris Status: Chronic Assessment and Plan: Stable. Subjective Date/time seen: 05/08/20 14:40 Interval history: 05/07/2020: Follow-up visit in this 85-year-old lady who appears to have diastolic congestive heart failure. She is known to have longstanding significant hypertension on multi-drug regimen and was admitted with shortness of breath. Modest pulmonary vascular congestion noted on chest x-ray. She has improved considerably with diuretics. She appears to be very comfortable and offers no other complaints this morning. She is still on nasal cannula oxygen however. Date of service : Up and about in her room, feeling well, no shortness of breath or swelling. O2 sat at rest is fine but needs O2 with ambulation and is going to have home O2. Review of Systems Eyes: Eyes: Denies blurry vision ENT: Denies epistaxis and Denies nasal congestion Cardiovascular: Cardiovascular: Denies chest pain, Denies diaphoresis, Denies pedal edema, Reports leg edema, Denies lightheadedness, Denies palpitations, Reports dyspnea and Reports dyspnea on exertion Respiratory: Respiratory: Reports dyspnea on exertion Gastrointestinal: Gastrointestinal: Denies abdominal pain Genitourinary: Genitourinary: Denies dysuria Musculoskeletal: Musculoskeletal: Reports no additional musculoskeletal complaints Neurologic: Denies behavioral changes and Denies confusion Psychiatric: Psychiatric: Reports no additional psychiatric complaints, Denies behavioral changes and Denies confusion Endocrine: Endocrine: Denies palpitations Allergic/Immunologic: Allergic/Immunologic: Reports wheezing Exam Narrative: Exam Narrative: Very pleasant lady, no distress Const: General: comfortable and no acute distress; No confusion Orientation/consciousness: No confusion HENMT: General nose exam: no epistaxis Eyes: EOM: EOMs intact bilaterally Neck: Neck: supple Resp: Effort & Inspection: normal respiratory effort Auscultation: rales ( Few rales in the right base) Cardio: Rate: regular rate Rhythm: regular rhythm Heart sounds: no murmurs Other: I could not palpate pedal pulses. GI: Inspection: non-distended Other: no hepatosplenomegaly Skin: General skin exam: normal color Wounds: no wounds Neuro: General: No confusion Cognition (Neuro): normal cognition Speech: normal speech Motor exam (neuro): Normal motor muscle tone present throughout Extrem: General: no edema and no pedal edema Psych: Mental Status: mental status grossly normal Affect: normal affect Objective Data Vital Signs Vital Signs: Vital Signs - 24 hr 05/07/20 21:29 05/07/20 22:19 05/08/20 05:35 Temperature 97.7 F 97 F L Pulse Rate 62 70 63 Respiratory Rate 17 16 Blood Pressure 124/65 137/56 L Pulse Oximetry 95 96 05/08/20 08:00 05/08/20 09:16 05/08/20 09:30 Temperature Pulse Rate 66 57 L Respiratory Rate 16 Blood Pressure Pulse Oximetry 92 94 97 05/08/20 09:33 05/08/20 09:35 05/08/20 09:37 Temperature Pulse
== END 2020-05-08 15:12 | disposition home or self-care (01) | DRG 291 ==
LOC: ANHED 16:10 → ANH3MED 16:34
PROVIDERS: Emergency Medicine; Physician Assistant; Admitting Provider Family Medicine; Emergency Provider Emergency Medicine; PCP Internal Medicine; Visit Provider Internal Medicine
DX: I11.0 Hypertensive heart disease with heart failure (principal); J96.01 Acute respiratory failure with hypoxia; I50.31 Acute diastolic (congestive) heart failure; I72.8 Aneurysm of other specified arteries; I27.20 Pulmonary hypertension, unspecified; I73.9 Peripheral vascular disease, unspecified; I25.10 Atherosclerotic heart disease of native coronary artery without angina pectoris; R29.818 Other symptoms and signs involving the nervous system; E11.9 Type 2 diabetes mellitus without complications; K21.9 Gastro-esophageal reflux disease without esophagitis; E53.8 Deficiency of other specified B group vitamins; E78.5 Hyperlipidemia, unspecified; I25.2 Old myocardial infarction; Z79.4 Long term (current) use of insulin; Z79.82 Long term (current) use of aspirin; Z85.72 Personal history of non-Hodgkin lymphomas; Z85.828 Personal history of other malignant neoplasm of skin; Z86.711 Personal history of pulmonary embolism; Z87.891 Personal history of nicotine dependence; Z95.5 Presence of coronary angioplasty implant and graft
CPT/HCPCS: 36415; 71046; 71275; 80048; 82607; 82746; 82948; 83735; 83880; 84443; 85025; 85055; 93005; 93306; 94618; 94640; 94762; 96372; 96374; 96376; 99285; A9270; G0378; J1650; J1815; J1940; J3420; Q9967

== ENCOUNTER 2020-05-13 08:54 | Outpatient (CLI) | payer MEDICARE, SELFPAY ==
[2020-05-13 09:26] LABS: Anion Gap 6 mmol/L (8-16); Blood Urea Nitrogen 25 mg/dL (7-17); Calcium 9.4 mg/dL (8.4-10.2); Carbon Dioxide 32 mmol/L (22-30); Chloride 99 mmol/L (98-107); Estimated Glomerular Filt Rate 60; Glucose 230 mg/dL (65-105); Potassium 4.5 mmol/L (3.4-5.0); Sodium 137 mmol/L (137-145)
[2020-05-13 09:28] LABS: Hemoglobin A1C 6.4 % (<5.7)
== END 2020-05-13 08:55 | disposition home or self-care (01) ==
LOC: ANHLAB 08:56
PROVIDERS: Clinical Nurse Specialist; Physician Assistant; PCP Internal Medicine; Visit Provider Nurse Practitioner
DX: I50.9 Heart failure, unspecified (principal); E11.9 Type 2 diabetes mellitus without complications
CPT/HCPCS: 36415; 80048; 83036

== ENCOUNTER 2020-06-04 00:32 | Outpatient (CLI) | payer MEDICARE, SELFPAY ==
[2020-06-04 18:02] LABS: SARS-CoV-2 RNA PCR Negative
== END 2020-06-04 00:33 | disposition home or self-care (01) ==
LOC: ANHCOVIDDT 00:33
PROVIDERS: Nurse Practitioner Family; PCP Internal Medicine; Visit Provider Internal Medicine Critical Care Medicine
DX: R09.89 Other specified symptoms and signs involving the circulatory and respiratory systems (principal); Z20.828 Contact with and (suspected) exposure to other viral communicable diseases
CPT/HCPCS: 87635; C9803; U0003

== ENCOUNTER 2020-06-07 07:48 | Outpatient (CLI) | payer MEDICARE, SELFPAY ==
--- NOTE | 2020-06-23 23:53 | SLEEP_ITS ---
SPLIT-NIGHT SLEEP STUDY DATE OF STUDY: 06/07/2020 ORDERING PROVIDER: Alen Higgins PRIMARY PHYSICIAN: Dr. Nayak. REASON FOR THE STUDY: MELODY. HISTORY: This patient is an 85-year-old woman, 59 inches tall, weighing 175 pounds with a body mass index of 35.3. She does have loud snoring for years. She constantly snores and it is frequently loud enough that others complain about it. She frequently awakens at night with heartburn, belching, or coughing. She does not awaken from sleep feeling short of breath. She wakes up throughout the night and has excessive daytime sleepiness. She does not have trouble sleeping with the cold, does not wake up gasping for breath at night, and does not have breathing problems at night observed by others. She frequently sweats excessively at night. She does not notice her heart pounding or beating irregularly at night. She frequently falls asleep during the day, frequently involuntarily. She does not fall asleep while driving and does not fall asleep with physical effort. She does not have loss of muscle tone with strong emotion. She denies having daytime difficulty due to excessive sleepiness, currently is retired. She does not feel paralyzed on waking or falling asleep. She occasionally has vivid dreamlike scenes upon awakening or falling asleep. She is never afraid to go to sleep. She does not have nightmares. She frequently remembers her dreams. She occasionally has racing thoughts. She rarely feels sad, depressed, or anxious. She occasionally has muscular tension and occasionally notices parts of her body jerking. She does not kick at night. She does not have crawly achy feelings in her legs. She frequently has leg pain at night. She does not have morning jaw pain. She occasionally grinds her teeth during the sleep. She occasionally is bothered by pain during the day. She does not awaken at night with pain, does not feel stiff in the morning, does not have sore achy muscles or wake up with pain in the neck and spine. She has memory problems and takes antacids regularly. Normal bedtime is 9:30 to 10 p.m., falling asleep after several hours, typically waking 2 to 3 times at night for only a few minutes. When this happens, she tries to return to sleep. She wakes up at 7 o'clock. Weekend schedule is similar. She does take naps. Naps are not refreshing. She sometimes feels refreshed after a short nap. Sometimes, she feels good in the morning. MEDICAL COMORBIDITIES: Hypertension, congestive heart failure, diabetes mellitus, gastroesophageal reflux disease, and coronary artery disease with a stent. MEDICATIONS: 1. Aspirin 81 mg a day. 2. Calcium carbonate 600 mg daily. 3. Multivitamins 1 daily. 4. Carvedilol 25 mg b.i.d. 5. Metformin 1,000 mg b.i.d. 6. Amlodipine 10 mg/valsartan 320 mg daily. 7. Lovastatin 20 mg a day. 8. Glargine insulin 40 units daily. 9. Vitamin B12 of 1,000 mcg daily. 10. Furosemide 40 mg daily. HABITS: Smoked 50 years ago. Caffeine 2 to 4 beverages a day. No alcohol or recreational drugs. DESCRIPTION OF THE STUDY: On the Chappell Sleepiness Scale, the score was 8. This was conducted as a split-night nocturnal polysomnogram in the sleep lab using the [employer] multiple channel system, including EOG, EEG, submental EMG, EKG, nasal and oral airflow using the thermistors and nasal pressure sensors, chest and abdominal belts, body position data, and pulse oximetry. This study was scored using the CMS guidelines. During the baseline portion, recording time was 200.7 minutes. Sleep time was 126 minutes. Sleep efficiency was low at 62.8%. Sleep latency was delayed at 68.8 minutes. There was no REM. She had 15 awakenings and spent 35.9 minutes awake after the sleep on
== END 2020-06-07 07:49 | disposition home or self-care (01) ==
LOC: ANHCSM 07:48
PROVIDERS: PCP Internal Medicine; Visit Provider Clinical Nurse Specialist
DX: G47.33 Obstructive sleep apnea (adult) (pediatric) (principal)
CPT/HCPCS: 95811

== ENCOUNTER 2020-07-19 11:07 | Outpatient (CLI) | payer MEDICARE, SELFPAY ==
[2020-07-19 11:27] LABS: Blood Urea Nitrogen 25 mg/dL (8-26); Carbon Dioxide 27 mmol/L (22-30); Chloride 102 mmol/L (98-109); Estimated Glomerular Filt Rate 43; Glucose 124 mg/dL (70-105); Potassium 4.3 mmol/L (3.5-4.9); Sodium 142 mmol/L (138-146)
[2020-07-19 11:27] LABS: Basophils Percent Auto 0.2 % (0.2-1.2); Eosinophils Absolute Auto 0.1 K/mm3 (0-0.3); Eosinophils Percent Auto 1.4 % (0-4.4); Hemoglobin 13.6 g/dL (12.0-15.0); Immature Granulocyte Absolute 0.01 K/mm3 (0.00-0.031); Immature Granulocyte Percent A 0.2 % (0-0.5); Immature Platelet Fraction Pct 6.4 % (0.9-11.2); Lymphocytes Absolute Auto 0.91 K/mm3 (0.9-3.2); Lymphocytes Percent Auto 15.8 % (18.3-44.2); Mean Corpuscular HGB Conc 33.2 g/dl (32-36); Mean Corpuscular Volume 99.5 fl (80-100); Mean Platelet Volume 11.4 fl (7.4-10.4); Monocytes Absolute Auto 0.5 K/mm3 (0.1-0.6); Monocytes Percent Auto 8.7 % (2.6-8.5); Neutrophils Absolute Auto 4.2 K/mm3 (1.3-6.7); Neutrophils Percent Auto 73.7 % (45.5-73.1); Platelet Count Result 134 k/mm3 (150-375); Red Blood Count 4.12 M/mm3 (4.2-5.4); Red Cell Distribution Width 13.8 % (11.5-14.5); White Blood Count 5.8 K/mm3 (4.5-10.0)
[2020-07-19 16:39] LABS: Alanine Aminotransferase 17 U/L (4-35); Albumin Level 4.3 g/dL (3.5-5.1); Alkaline Phosphatase 51 U/L (38-126); Anion Gap 11 mmol/L (8-16); Aspartate Amino Transferase 20 U/L (14-36); Bilirubin,Total 0.5 mg/dL (0.2-1.3); Blood Urea Nitrogen 26 mg/dL (7-17); Calcium 9.9 mg/dL (8.4-10.2); Carbon Dioxide 30 mmol/L (22-30); Chloride 100 mmol/L (98-107); Estimated Glomerular Filt Rate 47; Glucose 126 mg/dL (65-105); Lactate Dehydrogenase 369 U/L (313-618); Potassium 4.4 mmol/L (3.4-5.0); Sodium 141 mmol/L (137-145)
== END 2020-07-19 11:08 | disposition home or self-care (01) ==
PROVIDERS: PCP Internal Medicine; Visit Provider Internal Medicine Hematology & Oncology
DX: Z85.72 Personal history of non-Hodgkin lymphomas (principal)
CPT/HCPCS: 36415; 80048; 80053; 83615; 85025; 85055

== ENCOUNTER 2020-08-17 10:38 | Outpatient (CLI) | payer MEDICARE, SELFPAY ==
[2020-08-17 11:04] LABS: Basophils Percent Auto 0.2 % (0.2-1.2); Eosinophils Percent Auto 0.8 % (0-4.4); Hematocrit 41.3 % (37.0-47.0); Hemoglobin 13.8 g/dL (12.0-15.0); Immature Granulocyte Absolute 0.01 K/mm3 (0.00-0.031); Immature Granulocyte Percent A 0.2 % (0-0.5); Immature Platelet Fraction Pct 6.7 % (0.9-11.2); Lymphocytes Absolute Auto 0.74 K/mm3 (0.9-3.2); Lymphocytes Percent Auto 14.9 % (18.3-44.2); Mean Corpuscular HGB Conc 33.4 g/dl (32-36); Mean Corpuscular Hemoglobin 33.3 pg (26-34); Mean Corpuscular Volume 99.8 fl (80-100); Mean Platelet Volume 11.7 fl (7.4-10.4); Monocytes Absolute Auto 0.5 K/mm3 (0.1-0.6); Monocytes Percent Auto 9.8 % (2.6-8.5); Neutrophils Absolute Auto 3.7 K/mm3 (1.3-6.7); Neutrophils Percent Auto 74.1 % (45.5-73.1); Platelet Count Result 132 k/mm3 (150-375); Red Blood Count 4.14 M/mm3 (4.2-5.4); Red Cell Distribution Width 13.2 % (11.5-14.5)
[2020-08-17 11:16] LABS: Anion Gap 9 mmol/L (8-16); Blood Urea Nitrogen 21 mg/dL (7-17); Calcium 9.6 mg/dL (8.4-10.2); Carbon Dioxide 29 mmol/L (22-30); Chloride 103 mmol/L (98-107); Estimated Glomerular Filt Rate 53; Glucose 194 mg/dL (65-105); Potassium 4.4 mmol/L (3.4-5.0); Sodium 141 mmol/L (137-145)
[2020-08-17 11:22] LABS: Hemoglobin A1C 6.2 % (<5.7)
== END 2020-08-17 10:39 | disposition home or self-care (01) ==
PROVIDERS: PCP Internal Medicine; Visit Provider Clinical Nurse Specialist
DX: I10 Essential (primary) hypertension (principal); E11.9 Type 2 diabetes mellitus without complications
CPT/HCPCS: 36415; 80048; 83036; 85025; 85055

== ENCOUNTER 2020-12-16 09:52 | Outpatient (CLI) | payer MEDICARE, SELFPAY ==
[2020-12-16 12:11] LABS: Folic Acid > 20.0 ng/mL (2.76->20)
== END 2020-12-16 09:53 | disposition home or self-care (01) ==
PROVIDERS: PCP Internal Medicine; Visit Provider Clinical Nurse Specialist
DX: E53.8 Deficiency of other specified B group vitamins (principal)
CPT/HCPCS: 36415; 82607; 82746

== ENCOUNTER 2020-12-31 09:47 | Outpatient (CLI) | payer MEDICARE, SELFPAY ==
[2020-12-31 10:23] LABS: Basophils Percent Auto 0.4 % (0.2-1.2); Eosinophils Absolute Auto 0.1 K/mm3 (0-0.3); Hematocrit 41.7 % (37.0-47.0); Hemoglobin 13.5 g/dL (12.0-15.0); Immature Granulocyte Absolute 0.02 K/mm3 (0.00-0.031); Immature Granulocyte Percent A 0.4 % (0-0.5); Lymphocytes Absolute Auto 0.74 K/mm3 (0.9-3.2); Lymphocytes Percent Auto 13.7 % (18.3-44.2); Mean Corpuscular HGB Conc 32.4 g/dl (32-36); Mean Corpuscular Hemoglobin 32.1 pg (26-34); Mean Corpuscular Volume 99.3 fl (80-100); Mean Platelet Volume 12.2 fl (7.4-10.4); Monocytes Absolute Auto 0.6 K/mm3 (0.1-0.6); Monocytes Percent Auto 10.7 % (2.6-8.5); Neutrophils Absolute Auto 3.9 K/mm3 (1.3-6.7); Neutrophils Percent Auto 72.8 % (45.5-73.1); Platelet Count Result 137 k/mm3 (150-375); Red Cell Distribution Width 14.1 % (11.5-14.5); White Blood Count 5.4 K/mm3 (4.5-10.0)
[2020-12-31 10:34] LABS: Hemoglobin A1C 6.9 % (<5.7)
[2020-12-31 10:38] LABS: Alanine Aminotransferase 15 U/L (4-35); Albumin Level 4.3 g/dL (3.5-5.1); Alkaline Phosphatase 44 U/L (38-126); Anion Gap 9 mmol/L (8-16); Aspartate Amino Transferase 20 U/L (14-36); Bilirubin,Total 0.4 mg/dL (0.2-1.3); Blood Urea Nitrogen 24 mg/dL (7-17); Calcium 9.9 mg/dL (8.4-10.2); Carbon Dioxide 30 mmol/L (22-30); Chloride 101 mmol/L (98-107); Cholesterol 151 mg/dL (0-200); Estimated Glomerular Filt Rate 47; Glucose 198 mg/dL (65-105); HDL Direct 38 mg/dL; Sodium 140 mmol/L (137-145); Triglycerides 214 mg/dL (<150)
[2020-12-31 10:47] LABS: LDL Cholesterol Direct 74 mg/dL
[2020-12-31 10:50] LABS: Potassium 4.7 mmol/L (3.4-5.0)
== END 2020-12-31 09:48 | disposition home or self-care (01) ==
PROVIDERS: PCP Internal Medicine; Visit Provider Clinical Nurse Specialist
DX: I50.9 Heart failure, unspecified (principal); E11.9 Type 2 diabetes mellitus without complications; Z79.4 Long term (current) use of insulin; I11.0 Hypertensive heart disease with heart failure
CPT/HCPCS: 36415; 80053; 80061; 83036; 85025

== ENCOUNTER 2021-01-17 11:20 | Outpatient (CLI) | payer MEDICARE, SELFPAY ==
[2021-01-17 11:41] LABS: Basophils Percent Auto 0.2 % (0.2-1.2); Eosinophils Absolute Auto 0.1 K/mm3 (0-0.3); Eosinophils Percent Auto 1.5 % (0-4.4); Hematocrit 40.1 % (37.0-47.0); Hemoglobin 13.3 g/dL (12.0-15.0); Immature Granulocyte Absolute 0.03 K/mm3 (0.00-0.031); Immature Granulocyte Percent A 0.5 % (0-0.5); Lymphocytes Absolute Auto 0.66 K/mm3 (0.9-3.2); Lymphocytes Percent Auto 11.2 % (18.3-44.2); Mean Corpuscular HGB Conc 33.2 g/dl (32-36); Mean Corpuscular Hemoglobin 32.5 pg (26-34); Mean Platelet Volume 11.5 fl (7.4-10.4); Monocytes Absolute Auto 0.5 K/mm3 (0.1-0.6); Neutrophils Absolute Auto 4.6 K/mm3 (1.3-6.7); Neutrophils Percent Auto 77.6 % (45.5-73.1); Platelet Count Result 146 k/mm3 (150-375); Red Blood Count 4.09 M/mm3 (4.2-5.4); Red Cell Distribution Width 14.4 % (11.5-14.5); White Blood Count 5.9 K/mm3 (4.5-10.0)
[2021-01-17 11:45] LABS: Blood Urea Nitrogen 26 mg/dL (8-26); Carbon Dioxide 27 mmol/L (22-30); Chloride 104 mmol/L (98-109); Estimated Glomerular Filt Rate 47; Glucose 180 mg/dL (70-105); Potassium 4.6 mmol/L (3.5-4.9); Sodium 141 mmol/L (138-146)
[2021-01-17 13:11] LABS: Alanine Aminotransferase 16 U/L (4-35); Albumin Level 4.3 g/dL (3.5-5.1); Alkaline Phosphatase 49 U/L (38-126); Anion Gap 8 mmol/L (8-16); Aspartate Amino Transferase 19 U/L (14-36); Bilirubin,Total 0.3 mg/dL (0.2-1.3); Blood Urea Nitrogen 26 mg/dL (7-17); Calcium 10.6 mg/dL (8.4-10.2); Carbon Dioxide 27 mmol/L (22-30); Chloride 104 mmol/L (98-107); Estimated Glomerular Filt Rate 53; Glucose 181 mg/dL (65-105); Lactate Dehydrogenase 363 U/L (313-618); Potassium 4.7 mmol/L (3.4-5.0); Sodium 139 mmol/L (137-145)
== END 2021-01-17 11:21 | disposition home or self-care (01) ==
LOC: ANHLAB 11:22
PROVIDERS: PCP Internal Medicine; Visit Provider Internal Medicine Hematology & Oncology
DX: Z85.72 Personal history of non-Hodgkin lymphomas (principal)
CPT/HCPCS: 36415; 80048; 80053; 83615; 85025

== ENCOUNTER 2021-05-04 08:54 | Emergency (ER) | payer MEDICARE, SELFPAY ==
--- NOTE | ~2021-05-04 | CT_ITS ---
EXAMINATION: CT brain wo con DATE: 05/04/2021 10:06 INDICATION: Head injury. TECHNIQUE: Computed tomography (CT) of the head was performed without intravenous contrast. The mA wa s adjusted according to patient size. Iterative reconstruction technique was employed. The dose-lengt h product was 605.33 mGy-cm. COMPARISON: Head CT 04/15/2017 FINDINGS: There are old lacunar infarcts in the bilateral basal ganglia. There is an old infarct in l eft occipital lobe. There are scattered areas of low attenuation in the cerebral white matter. There is no intracranial hemorrhage, acute infarction, or abnormal intracranial mass lesion. The ventricles are normal in size. There are likely changes of right ocular lens replacement surgery. There is mild mucosal thickening in the paranasal sinuses. The mastoid air cells are normal. IMPRESSION: 1. 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 2. Worsened mild nonspecific cerebral white matter disease, which likely represents chronic small ves karen ischemic disease. Reviewed, dictated and finalized at location A. IMPRESSION: 1. 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 2. Worsened mild nonspecific cerebral white matter disease, which likely repres ents chronic small vessel ischemic disease.
--- NOTE | ~2021-05-04 | XR_ITS ---
EXAMINATION: XR sacrum coccyx min 2V DATE: 05/04/2021 09:59 INDICATION: Sacrococcygeal injury. Right hip and leg pain. TECHNIQUE: 3 views of sacrum and coccyx were obtained. COMPARISON: PET CT 05/20/2019 FINDINGS: There is lumbar levoscoliosis and severe spondylosis. There is an old fracture deformity of distal sacrum. No acute fracture. IMPRESSION: 1. No acute fracture. Reviewed, dictated and finalized at location A. IMPRESSION: 1. No acute fracture.
--- NOTE | ~2021-05-04 | CT_ITS ---
EXAMINATION: CT LE RT wo con EXAM DATE: 05/04/2021 10:32 INDICATION: Right knee pain. Abnormal x-ray. TECHNIQUE: Spiral CT LE RT was performed without contrast. Axial, coronal and sagittal images were reviewed. The dose-length product (DLP) for this examination was 488.10 mGy-cm. The exposure was t ailored according to patient size (auto mA exposure control), and iterative reconstruction (ASIR) was used as additional dose reduction technique. There is no prior study for comparison. FINDINGS: There is an acute nondisplaced closed posttraumatic fracture of the right fibular head exte nding into its articulation with the lateral tibial plateau. There is a small right knee lipohemarthr osis. Patella and the imaged portion of tibia and femur are intact. IMPRESSION: Acute nondisplaced right fibular head fracture. Small lipohemarthrosis. Reviewed, dictated and finalized at location A. IMPRESSION: Acute nondisplaced right fibular head fracture. Small lipohemarthr osis.
--- NOTE | ~2021-05-04 | XR_ITS ---
EXAMINATION: XR pelvis 1-2V DATE: 05/04/2021 09:59 INDICATION: Right pelvic pain. Fall. TECHNIQUE: An anteroposterior view of the pelvis was obtained. COMPARISON: None. FINDINGS: There is lumbar levoscoliosis and severe spondylosis. No fracture. There is mild osteoarthr itis of the hips. Osteitis pubis is noted. IMPRESSION: 1. Mild osteoarthritis of the hips. Reviewed, dictated and finalized at location A.
--- NOTE | ~2021-05-04 | XR_ITS ---
EXAMINATION: XR knee RT min 4V EXAM DATE: 05/04/2021 09:59 INDICATION: Initial encounter following injury, with pain of the right knee. TECHNIQUE: Right knee frontal, crosstable lateral, orthogonal oblique projections for interpretation . There is no prior study for comparison. FINDINGS: No evidence osteochondral defect or joint body in the right knee joint. There are no acut e fractures or dislocations identified. There is no subcutaneous gas. Small joint effusion or lipoh emarthrosis. There are no radiopaque foreign bodies. Scattered superficial femoral arterial sclerosi s. IMPRESSION: Small joint effusion or lipohemarthrosis, but no acute fracture line identified. If patie nt unable to bear weight, consider CT. Reviewed, dictated and finalized at location A. IMPRESSION: Small joint effusion or lipohemarthrosis, but no acute fracture shauna e identified. If patient unable to bear weight, consider CT.
[2021-05-04 08:57] VITALS: BP 170/58; PULSE 75; RESP 18; O2SAT 95
--- NOTE | 2021-05-04 09:17 | ED.GENADULT ---
HPI - General Adult General Chief complaint: Fall Stated complaint: R leg pain, fall Time Seen by Provider: 05/04/21 08:56 Source: RN notes reviewed History of Present Illness HPI narrative: Patient presents to emergency department from home for a fall. Patient states she fell approximately 1 PM yesterday states at that time she struck her head on the back of a chair and landed directly on her buttock she notes pain in the region of the tailbone and she states that when she fell she twisted her right knee causing pain in her right knee patient states that she has been having difficulty walking since that time she denies any definitive loss of consciousness states she does take an aspirin daily patient denies any pain in her hips but states all the pain is located in her buttocks do not take any pain medication she denies any chest pain shortness of breath abdominal pain numbness or tingling in the extremities or any other symptom Related Data Home Medications Medication Instructions Recorded Confirmed aspirin 81 mg tablet,delayed 81 mg PO DAILY 07/29/19 02/01/21 release calcium carbonate 600 mg calcium 600 mg PO DAILY 07/29/19 02/01/21 (1,500 mg) tablet multivit with 1 tablet PO DAILY 07/29/19 02/01/21 [id number]-JB-lutein 8 mg iron-400 mcg-300 mcg tablet Allergies Allergy/AdvReac Type Severity Reaction Status Date / Time codeine AdvReac Severe Vomiting Verified 05/04/21 09:10 ANXIETY MEDS AdvReac Intermediate Hallucinati Uncoded 05/04/21 09:10 ng Review of Systems Review of Systems: Gen.: Denies fevers or chills Eyes: Denies eye pain or visual change ENT: Denies congestion Respiratory: Denies shortness of breath or cough CV: Denies chest pain or palpitations GI: Denies abdominal pain nausea, emesis or diarrhea Musculoskeletal: See HPI Neuro: Denies numbness, tingling, weakness or focal weakness Skin: Denies rash Except as documented, all other systems reviewed and negative [facility] Past Medical History Medical History (Updated 05/04/21 @ 11:56 by Amari Perez DO) Basal cell carcinoma Excised from the face and neck. 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 She received adjuvant chemotherapy and radiation. Essential hypertension Gastroesophageal reflux disease Hepatitis B History of echocardiogram Echocardiogram in April 2019 showed normal left ventricular chamber size and function with moderately increased left ventricular wall thickness and ejection fraction estimated 55 to 60%, mildly enlarged right ventricle, moderate aortic valve calcification, mild tricuspid valve regurgitation, mild mitral valve regurgitation, mild pulmonic valve regurgitation, and mild pulmonary hypertension with an estimated pulmonary arterial systolic pressure of 36 mmHg. Hyperlipidemia Insulin dependent type 2 diabetes mellitus Hemoglobin A1c was 7.1% in September 2019. Measles Myocardial infarct Osteoarthritis Pneumonia Pulmonary embolism Shingles Surgical History Surgical History History of appendectomy History of cardiac catheterization (~08/2014) Status post drug-eluting stent to the distal right coronary artery. History of cholecystectomy History of total abdominal hysterectomy and bilateral salpingo-oophorectomy Status post surgical removal of malignant neoplasm of skin (~08/2016) Excisional biopsy and 3 excision/debridement of a right anterior leg D fuse large B-cell lymphoma. Family History Family History Sibling Diabetes mellitus Family history of congestive heart failure Mother Family history of congestive heart failure Father Lung cancer Social History Soci
[2021-05-04 11:03] VITALS: BP 157/70; PULSE 72; RESP 20; O2SAT 96
== END 2021-05-04 12:17 | disposition home or self-care (01) ==
PROVIDERS: Emergency Provider Emergency Medicine; PCP Internal Medicine
DX: S82.831A Other fracture of upper and lower end of right fibula, initial encounter for closed fracture (principal); S00.93XA Contusion of unspecified part of head, initial encounter; S30.0XXA Contusion of lower back and pelvis, initial encounter; I25.10 Atherosclerotic heart disease of native coronary artery without angina pectoris; E11.9 Type 2 diabetes mellitus without complications; Z79.4 Long term (current) use of insulin; M19.90 Unspecified osteoarthritis, unspecified site; W18.30XA Fall on same level, unspecified, initial encounter
CPT/HCPCS: 70450; 72170; 72220; 73564; 73700; 99284

== ENCOUNTER 2021-06-18 09:33 | Outpatient (CLI) | payer MEDICARE, SELFPAY ==
--- NOTE | ~2021-06-18 | MR_ITS ---
EXAMINATION: MR knee RT wo con DATE: 06/18/2021 10:48 INDICATION: Right knee pain and fracture TECHNIQUE: Magnetic resonance imaging (MRI) of the right knee was performed without intravenous contr ast. Sequences included coronal PD-weighted FSE, coronal PD-weighted FS FSE, sagittal T2-weighted FS E, sagittal PD-weighted FS FSE and axial PD weighted fat saturated FSE. COMPARISON: CT dated 05/04/2021 FINDINGS: Medial compartment: Longitudinal horizontal medial meniscal tear which extends to the intra-articular surface near the fr ee edge in the posterior horn, crossing the free edge at the skull body and extending to the superior articular surface at the anterior body. Partial-thickness chondral ulceration with deep fissuring at the anterior to central weightbearing medial femoral condyle. There is an intra-articular fracture a t the posterior aspect of the lateral tibial plateau with a fragment measuring 2.4 cm medial collater al and 1.6 cm anterior to posterior. There is negligible depression of the fragment with approximatel y 1 mm step-off at the articular cortex. It is unclear whether the fracture extends across the overly ing articular cartilage. There is an additional. Low signal intensity nondisplaced subarticular fract ure line underlying the posterior most weightbearing lateral femoral condyle. The fracture line exten ds to the articular cortex but without evident fracture gap or step off and without definitive involv ement of the overlying articular cartilage. Lateral compartment: Lateral meniscus is normal. Small focus of subarticular edema at the posterior weightbearing lateral femoral condyle with suggestion of negligible depression of the articular cortex suspicious for an ad ditional small impaction fracture without evident involvement of the overlying articular cartilage. A rticular cartilage appears normal. Patellofemoral compartment: Shallow chondral fissuring at the inferior aspect of the patellar apical ridge. Deep chondral ulcerat ion involving the caudal two thirds of the trochlear groove without degenerative subchondral changes. Ligaments and tendons: Anterior and posterior cruciate ligaments are normal. The fibular collateral ligament complex is norm al. There is mild thickening and minimal increased signal of the proximal medial collateral ligament without surrounding edema which could represent scarring related to subacute or chronic sprain. Mild to moderate tendinopathy without discrete tear. There are thin horizontal bands of magic angle artifa ct extending across the otherwise normal patellar tendon of the central patellar insertion of the dis love quadriceps tendon. The visualized medial and lateral hamstring tendons as well as the iliotibial band are normal. Fluid: Small right knee joint effusion. There is edema in the soft tissues extending inferiorly from a likel y partially ruptured moderate-sized Lucas's cyst. There is additional prominent subcutaneous edema ab out the knee with medial side predominance. No loose osteochondral bodies identified. Osseous/other: In addition to the previous noted fractures at the posterior lateral tibial plateau and posterior vinny ghtbearing medial and lateral femoral condyles there is a nondisplaced intra-articular fracture at th e proximal head of the fibula. No pathologic marrow replacing process. IMPRESSION: 1. Subacute nondisplaced intra-articular fractures at the posterior aspect of the medial and lateral weightbearing femoral condyles, the posterior aspect of the medial tibial plateau and the proximal he ad of the fibula. 2. Longitudinal horizontal medial meniscal tear. 3. Scarring consistent with subacute or chronic sprain of the proximal medial collateral ligament. 4. Mild to moderate distal quadriceps tendinopathy without discrete tear. 4. Small right knee joint effusion and likely partially ruptured modera
== END 2021-06-18 09:34 | disposition home or self-care (01) ==
LOC: ANHIMG 09:36
PROVIDERS: PCP Internal Medicine; Visit Provider Orthopaedic Surgery
DX: M25.461 Effusion, right knee (principal); S83.241A Other tear of medial meniscus, current injury, right knee, initial encounter; X58.XXXA Exposure to other specified factors, initial encounter
CPT/HCPCS: 73721

== ENCOUNTER 2021-09-12 10:11 | Outpatient (CLI) | payer MEDICARE, SELFPAY ==
[2021-09-12 10:58] LABS: Basophils Percent Auto 0.2 % (0.2-1.2); Eosinophils Absolute Auto 0.1 K/mm3 (0-0.3); Eosinophils Percent Auto 2.1 % (0-4.4); Hematocrit 41.5 % (37.0-47.0); Hemoglobin 13.6 g/dL (12.0-15.0); Immature Granulocyte Absolute 0.03 K/mm3 (0.00-0.031); Immature Granulocyte Percent A 0.5 % (0-0.5); Lymphocytes Absolute Auto 0.63 K/mm3 (0.9-3.2); Lymphocytes Percent Auto 10.9 % (18.3-44.2); Mean Corpuscular HGB Conc 32.8 g/dl (32-36); Mean Corpuscular Hemoglobin 32.5 pg (26-34); Mean Platelet Volume 11.9 fl (7.4-10.4); Monocytes Absolute Auto 0.5 K/mm3 (0.1-0.6); Monocytes Percent Auto 8.6 % (2.6-8.5); Neutrophils Absolute Auto 4.5 K/mm3 (1.3-6.7); Neutrophils Percent Auto 77.7 % (45.5-73.1); Platelet Count Result 150 k/mm3 (150-375); Red Blood Count 4.19 M/mm3 (4.2-5.4); Red Cell Distribution Width 13.8 % (11.5-14.5); White Blood Count 5.8 K/mm3 (4.5-10.0)
[2021-09-12 11:00] LABS: Alanine Aminotransferase 17 U/L (4-35); Albumin Level 4.3 g/dL (3.5-5.1); Alkaline Phosphatase 55 U/L (38-126); Anion Gap 8 mmol/L (8-16); Aspartate Amino Transferase 20 U/L (14-36); Bilirubin,Total 0.4 mg/dL (0.2-1.3); Blood Urea Nitrogen 19 mg/dL (7-17); Calcium 9.7 mg/dL (8.4-10.2); Carbon Dioxide 29 mmol/L (22-30); Chloride 102 mmol/L (98-107); Cholesterol 155 mg/dL (0-200); Estimated Glomerular Filt Rate 47; Glucose 220 mg/dL (65-110); HDL Direct 44 mg/dL; Potassium 4.2 mmol/L (3.4-5.0); Sodium 139 mmol/L (137-145); Triglycerides 276 mg/dL (<150)
[2021-09-12 11:10] LABS: LDL Cholesterol Direct 70 mg/dL
[2021-09-12 12:16] LABS: Folic Acid > 20.0 ng/mL (2.76->20); Vitamin B12 > 1000.0 pg/mL (239-931)
== END 2021-09-12 10:12 | disposition home or self-care (01) ==
PROVIDERS: PCP Internal Medicine; Visit Provider Nurse Practitioner
DX: E11.9 Type 2 diabetes mellitus without complications (principal); Z79.4 Long term (current) use of insulin; I25.10 Atherosclerotic heart disease of native coronary artery without angina pectoris; E53.8 Deficiency of other specified B group vitamins; I10 Essential (primary) hypertension
CPT/HCPCS: 36415; 80053; 80061; 82607; 82746; 83036; 85025

== ENCOUNTER 2021-09-14 12:25 | Outpatient (CLI) | payer MEDICARE, SELFPAY ==
[2021-09-14 12:30] VITALS: PULSE 84; O2SAT 94
[2021-09-14 12:40] VITALS: PULSE 88; O2SAT 87
[2021-09-14 12:50] VITALS: PULSE 88; O2SAT 94
[2021-09-14 13:55] VITALS: PULSE 90; O2SAT 92
--- NOTE | 2021-09-14 13:57 | HOMEO2EVAL ---
Evaluation was performed at [facility] Home Oxygen Evaluation RC: Home Oxygen (O2) Evaluation Start: 09/14/21 13:51 Freq: Status: Active Protocol: RPE Activity Type Activity Date Activity User E-Sign Co-Sign Detail Recorded Client Recorded Date Recorded By Document 09/14/21 12:30 KMV [email or web address] 09/14/21 13:57 KMV Document 09/14/21 12:40 KMV [email or web address] 09/14/21 13:57 KMV Document 09/14/21 12:50 KMV [email or web address] 09/14/21 13:57 KMV Document 09/14/21 13:55 KMV [email or web address] 09/14/21 13:57 KMV 09/14/21 09/14/21 09/14/21 12:30 12:40 12:50 Home O2 Evaluation Test Phase Resting Exercise Resting Oxygen Delivery Room Air Room Air Room Air Oxygen Flow Rate (L/min) Pulse Oximetry (90-100 %) 94 87 L 94 Pulse Rate (60-100 beats/min) 84 88 88 Activity Tolerance Good Fair Rating of Perceived Dyspnea (PD) +1 Mild, +3 Moderate Noticeable to Difficulty, But the Participant Can Continue but Not to an Observer Rate of Perceived Exertion (PE) 6 Very, very light Ambulation Distance (feet) Ambulation Distance (meters) Treatment Charges O2 Evaluation - O2 Evaluation - Outpatient Outpatient 09/14/21 13:55 Home O2 Evaluation Test Phase Exercise Oxygen Delivery Nasal Cannula Oxygen Flow Rate (L/min) 2 Pulse Oximetry (90-100 %) 92 Pulse Rate (60-100 beats/min) 90 Activity Tolerance Good Rating of Perceived Dyspnea (PD) +1 Mild, Noticeable to the Participant but Not to an Observer Rate of Perceived Exertion (PE) Ambulation Distance (feet) 500 Ambulation Distance (meters) 152.39 Treatment Charges
== END 2021-09-14 12:26 | disposition home or self-care (01) ==
PROVIDERS: PCP Internal Medicine; Visit Provider Physician Assistant
DX: R09.02 Hypoxemia (principal)
CPT/HCPCS: 94618

== ENCOUNTER 2021-10-17 10:48 | Outpatient (CLI) | payer MEDICARE, SELFPAY ==
[2021-10-17 11:03] LABS: Basophils Percent Auto 0.2 % (0.2-1.2); Eosinophils Absolute Auto 0.1 K/mm3 (0-0.3); Eosinophils Percent Auto 1.6 % (0-4.4); Hematocrit 39.7 % (37.0-47.0); Hemoglobin 12.6 g/dL (12.0-15.0); Immature Granulocyte Absolute 0.03 K/mm3 (0.00-0.031); Immature Granulocyte Percent A 0.5 % (0-0.5); Immature Platelet Fraction Pct 6.8 % (0.9-11.2); Lymphocytes Absolute Auto 0.61 K/mm3 (0.9-3.2); Lymphocytes Percent Auto 10.8 % (18.3-44.2); Mean Corpuscular HGB Conc 31.7 g/dl (32-36); Mean Corpuscular Hemoglobin 32.2 pg (26-34); Mean Corpuscular Volume 101.5 fl (80-100); Mean Platelet Volume 11.8 fl (7.4-10.4); Monocytes Absolute Auto 0.5 K/mm3 (0.1-0.6); Monocytes Percent Auto 8.3 % (2.6-8.5); Neutrophils Absolute Auto 4.4 K/mm3 (1.3-6.7); Neutrophils Percent Auto 78.6 % (45.5-73.1); Platelet Count Result 147 k/mm3 (150-375); Red Blood Count 3.91 M/mm3 (4.2-5.4); Red Cell Distribution Width 13.7 % (11.5-14.5); White Blood Count 5.6 K/mm3 (4.5-10.0)
[2021-10-17 11:04] LABS: Blood Urea Nitrogen 19 mg/dL (8-26); Carbon Dioxide 28 mmol/L (22-30); Chloride 102 mmol/L (98-109); Estimated Glomerular Filt Rate 43; Glucose 155 mg/dL (70-105); Potassium 4.1 mmol/L (3.5-4.9); Sodium 143 mmol/L (138-146)
[2021-10-17 13:47] LABS: Alanine Aminotransferase 15 U/L (4-35); Albumin Level 4.2 g/dL (3.5-5.1); Alkaline Phosphatase 53 U/L (38-126); Anion Gap 6 mmol/L (8-16); Aspartate Amino Transferase 25 U/L (14-36); Bilirubin,Total 0.4 mg/dL (0.2-1.3); Blood Urea Nitrogen 19 mg/dL (7-17); Calcium 9.8 mg/dL (8.4-10.2); Carbon Dioxide 28 mmol/L (22-30); Chloride 104 mmol/L (98-107); Estimated Glomerular Filt Rate 47; Glucose 161 mg/dL (65-110); Lactate Dehydrogenase 314 U/L (313-618); Potassium 4.1 mmol/L (3.4-5.0); Sodium 138 mmol/L (137-145)
== END 2021-10-17 10:49 | disposition home or self-care (01) ==
LOC: ANHLAB 10:50
PROVIDERS: PCP Internal Medicine; Visit Provider Internal Medicine Hematology & Oncology
DX: Z85.72 Personal history of non-Hodgkin lymphomas (principal)
CPT/HCPCS: 36415; 80053; 83615; 85025; 85055

== ENCOUNTER 2022-03-14 10:20 | Outpatient (CLI) | payer MEDICARE, SELFPAY ==
[2022-03-14 10:42] LABS: Hemoglobin A1C 6.1 % (<5.7)
== END 2022-03-14 10:21 | disposition home or self-care (01) ==
LOC: ANHLAB 10:21
PROVIDERS: PCP Internal Medicine; Visit Provider Nurse Practitioner
DX: E11.9 Type 2 diabetes mellitus without complications (principal); Z79.4 Long term (current) use of insulin
CPT/HCPCS: 36415; 83036

== ENCOUNTER 2022-07-03 15:27 | Emergency (ER) | payer MEDICARE, SELFPAY ==
[2022-07-03] VITALS (11 sets, daily range): BP systolic 136–147; BP diastolic 56–77; PULSE 61–74; RESP 15–30; TEMP 36.8; O2SAT 88–96
--- NOTE | ~2022-07-03 | XR_ITS ---
XR chest 2V 07/03/2022 16:34 Indication: Cough. Chest pain. Procedure: 2 view chest Comparison: Comparison to multiple prior studies sequentially, with oldest reviewed study dated 04/29. Findings: Borderline heart size. There is atherosclerosis of the aorta. No focal air space disease, p ulmonary edema, pleural effusion or suspected pneumothorax. There is a healed right humeral neck frac ture. Impression: 1: No acute cardiopulmonary disease. Reviewed, dictated and finalized at location B. Impression: 1: No acute cardiopulmonary disease.
--- NOTE | 2022-07-03 15:42 | ECG_ITS ---
Measurements Intervals [place] Rate: 68 P: 40 IL: 150 QRS: 49 QRSD: 94 T: 48 QT: 389 QTc: 417 Interpretive Statements SINUS RHYTHM NORMAL ECG COMPARED TO ECG 05/04/2020 12:42:38 HEART RATE HAS INCREASED Electronically Signed On 07-03-2022 16:28:52 CDT by Allen Mejia M.D.
[2022-07-03 16:10] LABS: Basophils Percent Auto 0.4 % (0.2-1.2); Eosinophils Percent Auto 0.9 % (0-4.4); Hematocrit 39.2 % (37.0-47.0); Hemoglobin 12.5 g/dL (12.0-15.0); Immature Granulocyte Absolute 0.02 K/mm3 (0.00-0.031); Immature Granulocyte Percent A 0.4 % (0-0.5); Immature Platelet Fraction Pct 6.8 % (0.9-11.2); Lymphocytes Absolute Auto 0.39 K/mm3 (0.9-3.2); Lymphocytes Percent Auto 8.4 % (18.3-44.2); Mean Corpuscular HGB Conc 31.9 g/dl (32-36); Mean Corpuscular Hemoglobin 32.2 pg (26-34); Mean Platelet Volume 11.5 fl (7.4-10.4); Monocytes Absolute Auto 0.9 K/mm3 (0.1-0.6); Monocytes Percent Auto 18.4 % (2.6-8.5); Neutrophils Absolute Auto 3.3 K/mm3 (1.3-6.7); Neutrophils Percent Auto 71.5 % (45.5-73.1); Platelet Count Result 134 k/mm3 (150-375); Red Blood Count 3.88 M/mm3 (4.2-5.4); Red Cell Distribution Width 14.5 % (11.5-14.5); White Blood Count 4.6 K/mm3 (4.5-10.0)
[2022-07-03 16:20] LABS: Alanine Aminotransferase 25 U/L (6-35); Albumin Level 4.3 g/dL (3.5-5.1); Alkaline Phosphatase 53 U/L (38-126); Anion Gap 14 mmol/L (8-16); Aspartate Amino Transferase 30 U/L (14-36); Bilirubin,Total 0.5 mg/dL (0.2-1.3); Blood Urea Nitrogen 20 mg/dL (7-17); Calcium 9.2 mg/dL (8.4-10.2); Carbon Dioxide 26 mmol/L (22-30); Chloride 102 mmol/L (98-107); Estimated CRCL calculation 30 ml/min; Estimated Glomerular Filt Rate 47; Glucose 143 mg/dL (65-110); Potassium 4.4 mmol/L (3.4-5.0); Sodium 142 mmol/L (137-145)
--- NOTE | 2022-07-03 16:51 | PC.NURSE ---
Patient denies SOB, but is 88-89% on room air at this time
[2022-07-03] MEDS: ALBUTEROL SULFATE NEB 2.5 MG/3 ML INH 15 MG INHALATION (18:13)
[2022-07-03] MEDS: IPRATROPIUM BR 0.02% INH SOLN 0.5 MG/2.5 ML VIAL 1 MG INHALATION (18:13)
[2022-07-03 18:15] LABS: Influenza A QL RT-PCR Negative (Negative); Influenza B QL RT-PCR Negative (Negative); SARS-CoV-2 RNA PCR Negative
--- NOTE | 2022-07-03 19:17 | ED.URI ---
HPI - URI/Sore Throat General Chief Complaint: Weakness Stated Complaint: Cough, Weak Time Seen by Provider: 07/03/22 17:21 History of Present Illness HPI Narrative: Patient states that a few days ago she started having some cough difficulty breathing, as well as chills and congestion. No chest pain, no swelling in her legs. Related Data Home Medications Medication Instructions Recorded Confirmed aspirin 81 mg tablet,delayed 81 mg PO DAILY 07/29/19 03/28/22 release (Adult Aspirin Regimen) calcium carbonate 600 mg calcium 600 mg PO DAILY 07/29/19 03/28/22 (1,500 mg) tablet (Calcium) multivit with 1 tablet PO DAILY 07/29/19 03/28/22 [id number] 8 mg iron-400 mcg-300 mcg tablet (Centrum Silver Women) Allergies Allergy/AdvReac Type Severity Reaction Status Date / Time codeine AdvReac Severe Vomiting Verified 03/28/22 10:48 ANXIETY MEDS AdvReac Intermediate Hallucinati Uncoded 03/28/22 10:48 ng Review of Systems Review of Systems: CONST: No fever. HEENT: No sore throat C/V: No chest pain RESP: Cough and shortness of breath GI: No nausea or vomiting : No dysuria. M/S: No joint pain. SKIN: No rash. NEURO: [No headache or focal numbness or weakness] PSYCH: [No depression] [facility] Past Medical History Medical History Basal cell carcinoma Excised from the face and neck. 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 She received adjuvant chemotherapy and radiation. Essential hypertension Gastroesophageal reflux disease Hepatitis B History of echocardiogram Echocardiogram in April 2019 showed normal left ventricular chamber size and function with moderately increased left ventricular wall thickness and ejection fraction estimated 55 to 60%, mildly enlarged right ventricle, moderate aortic valve calcification, mild tricuspid valve regurgitation, mild mitral valve regurgitation, mild pulmonic valve regurgitation, and mild pulmonary hypertension with an estimated pulmonary arterial systolic pressure of 36 mmHg. Hyperlipidemia Insulin dependent type 2 diabetes mellitus Hemoglobin A1c was 7.1% in September 2019. Measles Myocardial infarct Neuropathy Osteoarthritis Pneumonia Pulmonary embolism Shingles Surgical History Surgical History History of appendectomy History of cardiac catheterization (~08/2014) Status post drug-eluting stent to the distal right coronary artery. History of cholecystectomy History of total abdominal hysterectomy and bilateral salpingo-oophorectomy Status post surgical removal of malignant neoplasm of skin (~08/2016) Excisional biopsy and 3 excision/debridement of a right anterior leg D fuse large B-cell lymphoma. Family History Family History Sibling Diabetes mellitus Family history of congestive heart failure Mother Family history of congestive heart failure Father Lung cancer Social History Social History Social History: The patient is and lives in her own home in [place]. 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 She smoked 2 packs of cigarettes per day for about 6 years and quit in the 1960s. No alcohol or illicit substance abuse. She designates her daughter, Cornelio Perrin, as her surrogate decision maker and she is listed as a full code. Smoking status: Former smoker Second hand tobacco smoke exposure: No Alcohol intake: never Substance use: never Substance use type: does not use Gender identity (if verbalized by the patient): Female Spiritual care concerns: No Exam Narrative: EXAMINATION OF ORGA
== END 2022-07-03 19:30 | disposition home or self-care (01) ==
PROVIDERS: Emergency Provider Emergency Medicine; PCP Internal Medicine
DX: J20.9 Acute bronchitis, unspecified (principal); Z20.822 Contact with and (suspected) exposure to COVID-19; I25.10 Atherosclerotic heart disease of native coronary artery without angina pectoris; E11.40 Type 2 diabetes mellitus with diabetic neuropathy, unspecified; I10 Essential (primary) hypertension; E78.5 Hyperlipidemia, unspecified; I25.2 Old myocardial infarction; K21.9 Gastro-esophageal reflux disease without esophagitis; M19.90 Unspecified osteoarthritis, unspecified site; Z95.5 Presence of coronary angioplasty implant and graft; Z86.711 Personal history of pulmonary embolism; Z85.828 Personal history of other malignant neoplasm of skin; Z87.01 Personal history of pneumonia (recurrent); Z90.710 Acquired absence of both cervix and uterus; Z90.722 Acquired absence of ovaries, bilateral; Z90.79 Acquired absence of other genital organ(s); Z87.891 Personal history of nicotine dependence; Z79.84 Long term (current) use of oral hypoglycemic drugs; Z79.82 Long term (current) use of aspirin
CPT/HCPCS: 36415; 71046; 80053; 85025; 85055; 87502; 93005; 94640; 99284; U0003; U0005

== ENCOUNTER 2022-07-10 14:37 | Outpatient (CLI) | payer MEDICARE, SELFPAY ==
[2022-07-10 19:52] LABS: Hemoglobin A1C 7.2 % (<5.7)
== END 2022-07-10 14:38 | disposition home or self-care (01) ==
PROVIDERS: PCP Internal Medicine; Visit Provider Internal Medicine
DX: E11.9 Type 2 diabetes mellitus without complications (principal); Z79.4 Long term (current) use of insulin
CPT/HCPCS: 36415; 83036